=== PATIENT | female | born 1960 | race Caucasian/White ===

== ENCOUNTER 2020-07-02 06:00 | Outpatient (RCR) | payer OTHER, SELFPAY | END 2020-07-08 23:59 | disposition home or self-care (01) | LOC: SOT 06:00 | PROVIDERS: PCP Internal Medicine; Referring Provider Orthopaedic Surgery; Visit Provider Orthopaedic Surgery | DX: M77.12 Lateral epicondylitis, left elbow (principal) | CPT/HCPCS: 97035; 97110; 97140; 97165; 97166 ==

== ENCOUNTER 2020-07-09 06:00 | Outpatient (RCR) | payer OTHER, SELFPAY | END 2020-07-25 16:33 | disposition home or self-care (01) | LOC: SOT 06:00 | PROVIDERS: PCP Internal Medicine; Referring Provider Orthopaedic Surgery; Visit Provider Orthopaedic Surgery | DX: M77.12 Lateral epicondylitis, left elbow (principal) | CPT/HCPCS: 97035; 97110; 97140 ==

== ENCOUNTER → 2022-05-15 12:23 | Outpatient (BNVA) | payer OTHER, SELFPAY | PROVIDERS: PCP Internal Medicine; Visit Provider Podiatrist Foot & Ankle Surgery | DX: M79.671 Pain in right foot (principal) | CPT/HCPCS: 73630 ==

== ENCOUNTER 2022-08-12 18:48 | Observation (INO) | payer OTHER, SELFPAY ==
[2022-08-12] VITALS (9 sets, daily range): BP systolic 107–151; BP diastolic 55–90; PULSE 76–93; RESP 16–24; TEMP 36.9; O2SAT 91–99; BMI 29.2
--- NOTE | 2022-08-12 18:56 | CTR_ITS ---
PROCEDURE INFORMATION: Exam: CTA Head With Contrast, Arteriography Exam date and time: 08/12/2022 7:22 PM Age: 61 years old Clinical indication: Weakness TECHNIQUE: Imaging protocol: Computed tomographic angiography of the head with contrast. Exam focused on the arteries. 3D rendering (Not supervised by radiologist): MIP and/or 3D reconstructed images were created by the technologist. Radiation optimization: All CT scans at this facility use at least one of these dose optimization techniques: automated exposure control; mA and/or kV adjustment per patient size (includes targeted exams where dose is matched to clinical indication); or iterative reconstruction. Contrast material: OMNIPAQUE 350; Contrast volume: 80 ml; Contrast route: INTRAVENOUS (IV); COMPARISON: CT head wo con* [id number] 08/12/2022 7:04 PM RADIATION DOSE METRICS: Total DLP (mGy-cm): 376.02 FINDINGS: ANTERIOR CIRCULATION: Right internal carotid artery: Intracranial segment is patent with no significant stenosis. No aneurysm. Right middle cerebral artery: No occlusion or significant stenosis. No aneurysm. Right anterior cerebral artery: Mild irregularity in the A1 segment of the right anterior cerebral artery with multifocal mild stenoses. The remainder of the artery is patent without stenosis. Left internal carotid artery: Intracranial segment is patent with no significant stenosis. No aneurysm. Left middle cerebral artery: No occlusion or significant stenosis. No aneurysm. Left anterior cerebral artery: No occlusion or significant stenosis. No aneurysm. POSTERIOR CIRCULATION: Right vertebral artery: No occlusion or significant stenosis. No aneurysm. Left vertebral artery: No occlusion or significant stenosis. No aneurysm. Basilar artery: No occlusion or significant stenosis. No aneurysm. 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 No stenosis. Left posterior cerebral artery: No occlusion or significant stenosis. No aneurysm. Brain: No definite mass, mass effect, or midline shift. Cerebral ventricles: No ventriculomegaly. Bones/joints: Unremarkable. No acute fracture. Soft tissues: Unremarkable. PROCEDURE INFORMATION: Exam: CTA Neck With Contrast Exam date and time: 08/12/2022 7:22 PM Age: 61 years old Clinical indication: Weakness TECHNIQUE: Imaging protocol: Computed tomographic angiography of the neck with contrast. 3D rendering (Not supervised by radiologist): MIP and/or 3D reconstructed images were created by the technologist. Radiation optimization: All CT scans at this facility use at least one of these dose optimization techniques: automated exposure control; mA and/or kV adjustment per patient size (includes targeted exams where dose is matched to clinical indication); or iterative reconstruction. Contrast material: OMNIPAQUE 350; Contrast volume: 80 ml; Contrast route: INTRAVENOUS (IV); COMPARISON: CT head wo con* [id number] 08/12/2022 7:04 PM RADIATION DOSE METRICS: Total DLP (mGy-cm): 376.02 FINDINGS: Right common carotid artery: No stenosis. No dissection or occlusion. Right internal carotid artery: No stenosis of the extracranial segment. No dissection or occlusion. Right external carotid artery: No occlusion or stenosis of the origin. Left common carotid artery: No stenosis. No dissection or occlusion. Left internal carotid artery: No stenosis of the extracranial segment. No dissection or occlusion. Left external carotid artery: No occlusion or stenosis of the origin. Right vertebral artery: No stenosis. No dissection or occlusion. 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 No stenosis. Soft tissues: Normal. No significant soft tissue swelling. Bones/joints: No acute fracture. CT/CT angio headneck* [id number] IMPRESSION: 1. No large artery occlusion. 2. Irregularity in the A1 segment of the right anterior cerebral artery with multifocal mild stenoses. This could represent atherosclerotic disease or vasculitis. IMPRESSION: 1. No large artery occlusion or stenosis. REFERENCES: NASCET CRITERIA. The degree of stenosis in the cervical segment of the internal carotid artery is based on NASCET criteria. Normal is no stenosis. Mild is less than 50% stenosis. Moderate is 50-69% stenosis. Severe is 70% to 99% stenosis. Total occlusion is no detectable patent lumen.
--- NOTE | 2022-08-12 18:56 | XRR_ITS ---
PROCEDURE INFORMATION: Exam: XR Chest Exam date and time: 08/12/2022 8:00 PM Age: 61 years old Clinical indication: Other: Weakness ? CVA TECHNIQUE: Imaging protocol: Radiologic exam of the chest. Views: 1 view. COMPARISON: CR XR chest 2V* [id number] 12/16/2020 9:31 AM FINDINGS: Lungs: Unremarkable. No consolidation. Pleural spaces: Unremarkable. No pleural effusion. No pneumothorax. Heart/Mediastinum: Unremarkable. No cardiomegaly. Bones/joints: Unremarkable. XR/XR chest 1V portable [id number] IMPRESSION: No acute findings.
--- NOTE | 2022-08-12 18:56 | CTR_ITS ---
PROCEDURE INFORMATION: Exam: CT Head Without Contrast Exam date and time: 08/12/2022 7:04 PM Age: 61 years old Clinical indication: Stroke-like symptoms; Generalized weakness TECHNIQUE: Imaging protocol: Computed tomography of the head without contrast. Radiation optimization: All CT scans at this facility use at least one of these dose optimization techniques: automated exposure control; mA and/or kV adjustment per patient size (includes targeted exams where dose is matched to clinical indication); or iterative reconstruction. Other technique: STROKE PROTOCOL was implemented. COMPARISON: No relevant prior studies available. RADIATION DOSE METRICS: Total DLP (mGy-cm): 1064.08 FINDINGS: Brain: The sulci are normal. Mild hypodensities in supratentorial periventricular and subcortical white matter, consistent with microangiopathy. No intracranial hemorrhage. Cerebral ventricles: No ventriculomegaly. Paranasal sinuses: Visualized sinuses are unremarkable. No fluid levels. Mastoid air cells: Visualized mastoid air cells are well aerated. Bones/joints: Unremarkable. No acute fracture. Soft tissues: Unremarkable. Vasculature: No hyperdense artery. CT/CT head wo con* [id number] IMPRESSION: No acute intracranial finding. ASSESSMENT: ASPECTS ([place] Stroke Program Early CT Score) is 10.
[2022-08-12 19:05] LABS: Basophils # 0.1 10^3/uL (0.0-0.1); Basophils % 0.6 %; Eosinophils % 0.3 %; Hematocrit 39.6 % (37.0-47.0); Hemoglobin 13.3 g/dL (11.5-15.3); Lymphocytes # 4.5 10^3/uL (0.8-4.8); Lymphocytes % 36.8 %; Mean Corpuscular HGB Conc 33.6 g/dL (30.0-36.0); Mean Corpuscular Hemoglobin 28.3 pg (28.0-34.0); Mean Corpuscular Volume 84.3 fl (81-99); Mean Platelet Volume 10.3 fL (7.4-10.4); Monocytes # 0.8 10^3/uL (0.2-0.9); Monocytes % 6.9 %; Neutrophils # 6.66 10^3/uL (1.8-7.7); Neutrophils % 55.1 %; Nucleated Red Blood Cells % 0 %; Platelet Count 422 10^3/cmm (130-400); Red Cell Distribution Width 13.6 % (12.1-15.1); White Blood Count 12.1 10^3/uL (4.0-10.0)
--- NOTE | 2022-08-12 19:06 | PC.NURSE ---
patient taken immediately to CT scan
[2022-08-12 19:17] LABS: INR 0.91 (0.8-1.2)
[2022-08-12] MEDS: iohexol 350 mg/mL 100 mL Btl IV (19:24)
[2022-08-12 19:34] LABS: Troponin(5th) Baseline 6 ng/L (0-10)
--- NOTE | 2022-08-12 19:40 | PC.NURSE ---
dr. pulido did bedside assessment. tpa not indicated at this time.
[2022-08-12 19:41] LABS: Alanine Aminotransferase 12 U/L (0-33); Albumin Level 4.3 g/dL (3.5-5.2); Alkaline Phosphatase 92 U/L (35-105); Anion Gap 16.4 (5-19); Aspartate Amino Transferase 18 U/L (0-32); Blood Urea Nitrogen 13 mg/dL (8-23); Calcium 9.7 mg/dL (8.5-10.5); Carbon Dioxide 24 mmol/L (22-29); Chloride 96 mmol/L (98-107); Creatinine Clr Calc Pharmacy 95.4046; Globulin 3.3 g/dL (1.3-4.6); Glomerular Filtration Rate 101.6 mL/min (90-130); Glucose 107 mg/dL (65-115); Magnesium 2.3 mg/dL (1.7-2.3); Osmolality Calculated 277 mOsm/kg (285-295); Potassium 3.4 mmol/L (3.5-5.1); Sodium 133 mmol/L (136-145); Thyroid Stimulating Hormone 1.49 uIU/mL (0.27-4.20); Total Bilirubin 0.2 mg/dL (0.15-1.2); Total Protein 7.6 g/dL (6.6-8.7)
[2022-08-12 19:54] LABS: Erythrocyte Sedimentation Rate 12 mm/hr (0-15)
--- NOTE | 2022-08-12 20:04 | ED_ITS ---
HPI - Neuro Symptoms/Deficit General: Chief Complaint: Neuro Symptoms/Deficit Stated Complaint: Weakness, near syncope Time Seen by Provider: 08/12/22 18:56 Source: patient and EMS Mode of arrival: EMS Limitations: no limitations History of Present Illness: 61-year-old female states she was sent down just prior to arrival stated that she started to feel lightheaded like she got a pass out patient arrived she states she is too weak to move any of her extremities is having hard time talking due to weakness denies any headache she does feel anxious denies any chest pain. Associated symptoms: Deny chest pain, nausea or vomiting Review of Systems Const: Denies: fever(s), chills, body aches or change in appetite Eyes: Denies: blurry vision or eye discomfort ENMT: Denies: throat pain or dental pain Card: Denies: chest pain Resp: Denies: dyspnea GI: Denies: abdominal pain, nausea, vomiting or diarrhea : Denies: dysuria Musc: Denies: neck pain or back pain Skin/Breast: Denies: rash Neuro: Reports: weakness in extremities and sensory changes Psych: Denies: depression Alex/Lymph: Denies: easy bruising All/Imm: Denies: urticaria PFSH ED PFSH: Medical History PMS (premenstrual syndrome) Seasonal allergies Surgical History H/O elbow surgery H/O: hysterectomy Family History Other Cancer Social History Smoking and tobacco status: never smoked Alcohol intake: current Alcohol intake frequency: holidays/special occasions only Physical Exam Const: COMMON NORMALS: patient oriented x3 HENMT: COMMON NORMALS: normocephalic and atraumatic HEAD & SCALP: normocephalic and atraumatic Eye: COMMON NORMALS: Equal, round and reactive pupils present and EOMs intact bilaterally PUPIL: Yes Equal, round and reactive pupils present Neck/C-Spine: COMMON NORMALS: full ROM and supple Chest: COMMONS NORMALS: normal inspection of the chest and normal palpation of entire chest wall Resp: COMMON NORMALS: normal respiratory effort, No retractions, No use of accessory muscles and clear to auscultation bilaterally AUSCULTATION: clear to auscultation bilaterally Cardio: COMMON NORMALS: regular rate, regular rhythm and No murmurs present (Cardio) RATE: regular rate RHYTHM: regular rhythm GI: COMMON NORMALS: Normal to inspection, nondistended, normoactive bowel sounds present, Soft to palpation, non-tender and no masses PALPATION: Yes Soft to palpation Extremity: COMMON NORMALS: normal to inspection Neuro: COMMON NORMALS: patient oriented x3 OTHER: Global weakness she has weakness in her arms and her legs difficulty lifting them off the bed Psych: COMMON NORMALS: mental status grossly normal, Normal thought process present and cooperative THOUGHT PROCESS: Normal thought process present Skin: COMMON NORMALS: no rashes or lesions noted and no wounds GENERAL SKIN EXAM: no rashes or lesions noted Course Reevaluation(s): Reevaluation #1: Patient's symptoms have resolved she is able ambulate now CT head CT angio showed no acute abnormalities patient is seen by Dr. Tai we will hold off TPA Time: 19:33 Vital Signs: Vital signs: Vital Signs Pulse Rate 91 08/12/22 19:00 Respiratory Rate 17 08/12/22 19:00 Blood Pressure 151/90 08/12/22 19:00 Pulse Oximetry 99 08/12/22 19:00 Oxygen Delivery Me thod 08/12/22 19:00 MDM - Neuro Symptoms/Deficit Medical Decision Making Patient presents with generalized weakness and is improved patient been seen in the ER by Dr. Tai will admit for likely MRI since patient symptoms improved she is not a tPA candidate. Spoke to hospitalist Dr. Leung who is admitting. Lab Data : 08/12/22 19:00 08/12/22 19:01 Radiology Impressions Chest X-Ray 08/12/22 18:56 IMPRESSION: No acute findings. Head CT 08/12/22 18:56 IMPRESSION: No acute intracranial finding. ASSESSMENT: ASPECTS (Bernadette Stroke Program Early CT Score) is 10. Head/Neck CTA 08/12/22 18:56 IMPRESSION: 1. No large artery occlusion. 2. Irregularity in the A1 segment of the right anterior cerebral artery with multifocal mild stenoses. This could represent atherosclerotic disease or vasculitis. IMPRESSION: 1. No large artery occlusion or stenosis. REFERENCES: NASCET CRITERIA. The degree of stenosis in the cervical segment of the internal carotid artery is based on NASCET criteria. Normal is no stenosis. Mild is less than 50% stenosis. Moderate is 50-69% stenosis. Severe is 70% to 99% stenosis. Total occlusion is no detectable patent lumen. Laboratory Results WBC 12.1 10^3/uL (4.0-10.0) H 08/12/22 19:00 RBC 4.70 10^6/uL (4.1-5.3) 08/12/22 19:00 Hgb 13.3 g/dL (11.5-15.3) 08/12/22 19:00 Hct 39.6 % (37.0-47.0) 08/12/22 19:00 MCV 84.3 fl (81-99) 08/12/22 19:00 MCH 28.3 pg (28.0-34.0) 08/12/22 19:00 MCHC 33.6 g/dL (30.0-36.0) 08/12/22 19:00 RDW 13.6 % (12.1-15.1) 08/12/22 19:00 Plt Count 422 10^3/cmm (130-400) H 08/12/22 19:00 MPV 10.3 fL (7.4-10.4) 08/12/22 19:00 Neut % (Auto) 55.1 % 08/12/22 19:00 Lymph % (Auto) 36.8 % 08/12/22 19:00 [place] % (Auto) 6.9 % 08/12/22 19:00 Eos % (Auto) 0.3 % 08/12/22 19:00 Baso % (Auto) 0.6 % 08/12/22 19:00 Neut # (Auto) 6.66 10^3/uL (1.8-7.7) 08/12/22 19:00 Lymph # (Auto) 4.5 10^3/uL (0.8-4.8) 08/12/22 19:00 [place] # (Auto) 0.8 10^3/uL (0.2-0.9) 08/12/22 19:00 Eos # (Auto) 0.0 10^3/uL (0.0-0.8) 08/12/22 19:00 Baso # (Auto) 0.1 10^3/uL (0.0-0.1) 08/12/22 19:00 Nucleated RBC % (auto) 0 % 08/12/22 19: Nucleated RBCs # 0.0 /100WBC 08/12/22 19: ESR 12 mm/hr (0-15) 08/12/22 19: PT 12.60 SECONDS (12.1-14.9) 08/12/22 19: INR 0.91 (0.8-1.2) 08/12/22 19: Sodium 133 mmol/L (136-145) L 08/12/22 19: Potassium 3.4 mmol/L (3.5-5.1) L 08/12/22 19: Chloride 96 mmol/L (98-107) L 08/12/22 19: Carbon Dioxide 24 mmol/L (22-29) 08/12/22 19: Anion Gap 16.4 (5-19) 08/12/22 19: BUN 13 mg/dL (8-23) 08/12/22 19: Creatinine 0.6 mg/dL (0.5-0.9) 08/12/22 19: GFR Calculation 101.6 mL/min (90-130) 08/12/22 19: Glucose 107 mg/dL (65-115) 08/12/22 19: Calculated Osmolality 277 mOsm/kg (285-295) L 08/12/22 19: Calcium 9.7 mg/dL (8.5-10.5) 08/12/22 19: Magnesium 2.3 mg/dL (1.7-2.3) 08/12/22 19: Total Bilirubin 0.2 mg/dL (0.15-1.2) 08/12/22 19: AST 18 U/L (0-32) 08/12/22 19: ALT 12 U/L (0-33) 08/12/22 19: Alkaline Phosphatase 92 U/L (35-105) 08/12/22 19: Troponin T Baseline 6 ng/L (0-10) 08/12/22 19: Troponin T 120 Minute 6.00 ng/L (0-10) 08/12/22 20:35 Total Protein 7.6 g/dL (6.6-8.7) 08/12/22 19:01 Albumin 4.3 g/dL (3.5-5.2) 08/12/22 19: Globulin 3.3 g/dL (1.3-4.6) 08/12/22 19: TSH 1.49 uIU/mL (0.27-4.20) 08/12/22 19:01 Urine Color Colorless (Yellow) 08/12/22 20:32 Urine Appearance Clear (CLEAR) 08/12/22 20: Urine pH 9 (5-7) H 08/12/22 20:32 Ur Specific [place] 1.015 (1.005-1.030) 08/12/22 20:32 Urine Protein Neg (Negative) 08/12/22 20:32 Urine Glucose (UA) Norm (Normal) 08/12/22 20:32 Urine Ketones 1+ (Negative) H 08/12/22 20:32 Urine Blood Neg (Negative) 08/12/22 20:32 Urine Nitrate Negative (Negative) 08/12/22 20:32 Urine Bilirubin Neg (Negative) 08/12/22 20:32 Prot Sulfosalicylic Acd Negative (Negative) 08/12/22 20:32 Urine Urobilinogen Norm mg/dL (Negative) 08/12/22 20:32 Ur Leukocyte Esterase Negative (Negative) 08/12/22 20:32 Discharge Plan Discharge Patient Disposition: Admitted As Inpatient Clinical Impression: Weakness Condition: Stable Prescriptions: No Action Zyrtec 10 mg capsule 10 mg PO DAILY fluoxetine 10 mg capsule 10 mg PO DAILY tretinoin 0.1 % cream 1 applic topical DAILY Qty: 45 3RF Rx Instructions: Apply pea-sized amount to clean, dry face nightly Referrals: Uche Emmanuel DO [Primary Care Provider] - Coding Level of Care Code ED Blocker And Polisher for Chg Fwd Exam Comprehensive
[2022-08-12] MEDS: LORazepam 1 mg Tablet PO (20:37)
[2022-08-12 20:42] LABS: Add Urine Microscopic? NO; Charge for UA Resulting for Rev
[2022-08-12 20:50] LABS: Bilirubin Urine Neg (Negative); Blood Urine Neg (Negative); Glucose Urine UA Norm (Normal); Ketones Urine 1+ (Negative); Leukocyte Esterase Urine Negative (Negative); Nitrate Urine Negative (Negative); Protein Urine Neg (Negative); Specific Gravity, Urine 1.015 (1.005-1.030); Sulfosalicylic Acid Urine Negative (Negative); Urine Appearance Clear (CLEAR); Urine Color Colorless (Yellow); Urobilinogen Urine Norm (Negative); pH Urine 9 (5-7)
--- NOTE | 2022-08-12 21:02 | ECG_ITS ---
[facility] Test Date: 2022-08-12 Pat Name: Soraida Tomas Department: Room: Gender: Female Dam[employer] Maker: : 1960 Requested By: Kihsan Andrews Order Number: [id number] Kiki MD: Jessie Cobb M.D. Measurements Intervals [place] Rate: 83 P: 55 GA: 152 QRS: -19 QRSD: 110 T: 59 QT: 391 QTc: 460 Interpretive Statements SINUS RHYTHM POSSIBLE LEFT ATRIAL ENLARGEMENT [-0.1mV P-WAVE IN V1/V2] INCOMPLETE RIGHT BUNDLE BRANCH BLOCK POSSIBLE INFERIOR MYOCARDIAL INFARCTION , PROBABLY OLD No previous ECG available for comparison Electronically Signed On 08-13-2022 12:52:48 CDT by Jessie Cobb M.D. [email or web address]
[2022-08-12] MEDS: aspirin 81 mg Chew Tablet 324 MG PO (21:10)
[2022-08-12] MEDS: sodium chloride 0.9% 1,000 ML 999 ML IV (21:10)
[2022-08-12 21:44] LABS: Troponin 5 2HR Delta 0 ABS# (0-10)
[2022-08-12 22:06] LABS: SARS Covid-2 Antigen negative (Negative)
--- NOTE | 2022-08-12 22:15 | PM.HP ---
Providers/Chief Complaint Primary Care Provider: Uche Emmanuel DO Chief Complaint: Weakness, near syncope History of Present Illness Soraida Tomas is a 61 year old female without significant known comorbidities who presented to the emergency room with having had an episode of passing out at around 6:30 PM. Patient reports she was in her usual state of health, she had just had dinner and suddenly started to feel dizzy, lightheaded and then lost consciousness. Her at bedside reports that she was unresponsive for about 20 minutes. He denies any seizure-like activity. No tonic-clonic movements however did notice rapid fluttering of her eyelashes. Patient denies any chest pain, dyspnea, palpitations, diaphoresis prior to onset of symptoms. She does not have any history of arrhythmias or other cardiac issues. No past history of CVA. No history of hypertension diabetes CAD. When she woke up, states that it was difficult for her to find words. She was moving all extremities, however reported generalized weakness. By the time she presented to the emergency room her symptoms had resolved. For this reason she was not given any tPA. CT of the head did not show any acute intracranial abnormalities. CTA of her head and neck did not show any large artery occlusion. Irregularity was noted in the A1 segment of the right anterior cerebral artery with multifocal mild stenosis suggestive of atherosclerotic disease versus vasculitis. She was evaluated by Dr. Tai in the emergency room. MRI/MRA has been recommended in follow-up. Patient does not have a known history of vasculitis, however states that her sister recently had what appears to be gangrene of her fingers in the setting of COVID-19 and during work-up was found to have an MTHFR mutation. Patient has no history of known clotting disorders. She is on hormone replacement therapy for several years to manage menopausal symptoms. Review of Systems General: Reports: 10 or more systems reviewed and unremarkable except in HPI and below Const: Denies: fever(s), chills or body aches Eyes: Denies: change in vision, blurry vision or photophobia ENMT: Reports: hoarseness; Denies: throat pain, enlarged tonsils, odynophagia or nasal congestion Card: Denies: chest pain, palpitations, irregular heart rhythm, edema, swelling of feet/ankles, lightheadedness, pre-syncope, dyspnea on exertion or orthopnea Resp: Denies: dyspnea, productive cough, non-productive cough, wheezing, stridor, pain on inspiration, change in phlegm color, hemoptysis or chest congestion GI: Denies: abdominal pain, nausea, vomiting, hematemesis, coffee ground emesis, dysphagia, heartburn, diarrhea, constipation, GI cramping, change in stool character, hematochezia or melena : Denies: flank pain, difficulty voiding, dysuria, urinary frequency, urinary urgency, urinary hesitancy or hematuria Musc: Denies: neck pain, back pain, extremity pain, joint swelling, joint warmth or deformity Neuro: Denies: headache(s), numbness in extremities, weakness in extremities, sensory changes, difficulty walking, frequent falls, dizziness, vertigo, behavioral changes, Slurred speech present or seizure-like activity Psych: Denies: anxiety, depression, suicidal ideation or homicidal ideation Endo: Denies: polyuria, polydipsia, tired all the time, cold intolerance or hot flashes Alex/Lymph: Denies: easy bruising or easy bleeding Medications/Allergies Home Medications Medication Instructions Recorded Confirmed Last Taken Type cetirizine 10 mg capsule (Zyrtec) 10 mg PO DAILY 02/17/21 08/12/22 Unknown History fluoxetine 10 mg capsule 10 mg PO DAILY 02/17/21 08/12/22 Unknown History estradiol 0.05 mg/24 hr semiweekly 0.05 mg transdermal Q7D 08/12/22 08/12/22 Unknown History transdermal patch progesterone micronized 200 mg 200 mg PO DAILY 08/12/22 08/12/22 Unknown History capsule Allergies Allergy/AdvReac Type Severity Reaction Status Date / Time Sulfa (Sulfonamide Allergy Rash Verified 08/12/22 19:06 Antibiotics) PFSH Acute PFSH: Medical History PMS (premenstrual syndrome) Seasonal allergies Surgical History H/O elbow surgery H/O: hysterectomy Family History Other Cancer Social History Smoking and tobacco status: never smoked Alcohol intake: current Alcohol intake frequency: holidays/special occasions only Vitals/I&O/Wt Last Vital Signs Pulse 91 08/12/22 19:00 Resp 17 08/12/22 19:00 BP 151/90 08/12/22 19:00 Pulse Ox 99 08/12/22 19:00 O2 Del Method 08/12/22 19:00 Weight last 48 hrs Weight 74.843 kg Physical Exam Narrative: General: No acute distress, AO x3 HEENT: PERRLA, pupils bilaterally equal and reactive, pallors not present Chest: Normal vesicular breath sounds, no added sounds, equal good air entry bilaterally CVS: S1-S2 regular, no murmurs, no tachycardia, no gallops, no rubs Abdomen: Soft, nontender, no organomegaly, bowel sounds present Neuro: No focal deficits, no facial deformity, AO x3, power 5/5 in all limbs Data : 08/13/22 02:47 08/13/22 02:47 Other Labs: Radiology Impressions Chest X-Ray 08/12/22 18:56 IMPRESSION: No acute findings. Head CT 08/12/22 18:56 IMPRESSION: No acute intracranial finding. ASSESSMENT: ASPECTS ([place] Stroke Program Early CT Score) is 10. Head/Neck CTA 08/12/22 18:56 IMPRESSION: 1. No large artery occlusion. 2. Irregularity in the A1 segment of the right anterior cerebral artery with multifocal mild stenoses. This could represent atherosclerotic disease or vasculitis. IMPRESSION: 1. No large artery occlusion or stenosis. REFERENCES: NASCET CRITERIA. The degree of stenosis in the cervical segment of the internal carotid artery is based on NASCET criteria. Normal is no stenosis. Mild is less than 50% stenosis. Moderate is 50-69% stenosis. Severe is 70% to 99% stenosis. Total occlusion is no detectable patent lumen. Laboratory Results WBC 10.7 10^3/uL (4.0-10.0) H 08/13/22 02:47 RBC 4.19 10^6/uL (4.1-5.3) 08/13/22 02:47 Hgb 11.7 g/dL (11.5-15.3) 08/13/22 02:47 Hct 36.6 % (37.0-47.0) L 08/13/22 02:47 MCV 87.4 fl (81-99) 08/13/22 02:47 MCH 27.9 pg (28.0-34.0) L 08/13/22 02:47 MCHC 32.0 g/dL (30.0-36.0) 08/13/22 02:47 RDW 13.9 % (12.1-15.1) 08/13/22 02:47 Plt Count 322 10^3/cmm (130-400) 08/13/22 02:47 MPV 10.6 fL (7.4-10.4) H 08/13/22 02:47 Neut % (Auto) 51.4 % 08/13/22 02:47 Lymph % (Auto) 38.9 % 08/13/22 02:47 Morton % (Auto) 8.1 % 08/13/22 02:47 Eos % (Auto) 0.7 % 08/13/22 02:47 Baso % (Auto) 0.6 % 08/13/22 02:47 Neut # (Auto) 5.51 10^3/uL (1.8-7.7) 08/13/22 02:47 Lymph # (Auto) 4.2 10^3/uL (0.8-4.8) 08/13/22 02:47 Morton # (Auto) 0.9 10^3/uL (0.2-0.9) 08/13/22 02:47 Eos # (Auto) 0.1 10^3/uL (0.0-0.8) 08/13/22 02:47 Baso # (Auto) 0.1 10^3/uL (0.0-0.1) 08/13/22 02:47 Nucleated RBC % (auto) 0 % 08/13/22 02:47 Nucleated RBCs # 0.0 /100WBC 08/13/22 02:47 ESR 12 mm/hr (0-15) 08/12/22 19:00 PT 12.60 SECONDS (12.1-14.9) 08/12/22 19:01 INR 0.91 (0.8-1.2) 08/12/22 19:01 Sodium 141 mmol/L (136-145) 08/13/22 02:47 Potassium 3.7 mmol/L (3.5-5.1) 08/13/22 02:47 Chloride 107 mmol/L (98-107) 08/13/22 02:47 Carbon Dioxide 22 mmol/L (22-29) 08/13/22 02:47 Anion Gap 15.7 (5-19) 08/13/22 02:47 BUN 12 mg/dL (8-23) 08/13/22 02:47 Creatinine 0.6 mg/dL (0.5-0.9) 08/13/22 02:47 GFR Calculation 101.6 mL/min (90-130) 08/13/22 02:47 Glucose 99 mg/dL (65-115) 08/13/22 02:47 Calculated Osmolality 292 mOsm/kg (285-295) 08/13/22 02:47 Calcium 9.1 mg/dL (8.5-10.5) 08/13/22 02:47 Magnesium 2.3 mg/dL (1.7-2.3) 08/12/22 19:01 Total Bilirubin 0.2 mg/dL (0.15-1.2) 08/13/22 02:47 AST 19 U/L (0-32) 08/13/22 02:47 ALT 9 U/L (0-33) 08/13/22 02:47 Alkaline Phosphatase 79 U/L (35-105) 08/13/22 02:47 Troponin T Baseline 6 ng/L (0-10) 08/12/22 19:01 Troponin T 120 Minute 6.00 ng/L (0-10) 08/12/22 20:35 Delta Troponin T 0 ABS# (0-10) 08/12/22 20:35 Troponin T Hi Sens 6Hr 6.00 ng/L (0-10) 08/13/22 02:47 Troponin T Hi Sens 6Hr Delta 0 ng/L (0-12) 08/13/22 02:47 Total Protein 6.3 g/dL (6.6-8.7) L 08/13/22 02:47 Albumin 3.8 g/dL (3.5-5.2) 08/13/22 02:47 Globulin 2.5 g/dL (1.3-4.6) 08/13/22 02:47 Triglycerides 580 mg/dL (0-150) H 10/05/22 20: Cholesterol 268 mg/dL (0-200) H 08/12/22 20: LDL Cholesterol Direct 160 mg/dL (0-100) H 08/12/22: LDL Cholesterol, Calc Not Reportable 08/12/22: HDL Cholesterol 49 mg/dL (60-100) L 08/12/22: LDL/HDL Ratio Not Reportable 08/12/22: Cholesterol/HDL Ratio 5.47 mg/dL (0.0-4.40) H 08/12/22 20:35 TSH 1.49 uIU/mL (0.27-4.20) 08/12/22 19:01 Urine Color Colorless (Yellow) 08/12/22: Urine Appearance Clear (CLEAR) 08/12/22: Urine pH 9 (5-7) H 08/12/22 20:32 Ur Specific [place] 1.015 (1.005-1.030) 08/12/22: Urine Protein Neg (Negative) 08/12/22: Urine Glucose (UA) Norm (Normal) 08/12/22: Urine Ketones 1+ (Negative) H 08/12/22: Urine Blood Neg (Negative) 08/12/22: Urine Nitrate Negative (Negative) 08/12/22: Urine Bilirubin Neg (Negative) 08/12/22 20:32 Prot Sulfosalicylic Acd Negative (Negative) 08/12/22:32 Urine Urobilinogen Norm mg/dL (Negative) 08/12/22: Ur Leukocyte Esterase Negative (Negative) 08/12/22 20: SARS-CoV-2 Ag (Rapid) negative (Negative) 08/12/22 21:19 A&P Assessment and plan (1) TIA (transient ischemic attack): (2) Syncope and collapse: Plan Patient presenting to the hospital today with transient loss of consciousness around 6:30 PM last evening. 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 Continuous telemetry monitoring to evaluate for any underlying arrhythmias. EKG currently shows sinus rhythm at [address] findings as noted above. Ordered for MRI and MRA. Vasculitis panel has been sent Check lipid panel Start aspirin 81 mg p.o. daily, atorvastatin 40 mg p.o. daily Check echocardiogram Her symptoms appear to be resolved at this point in time. Further recommendations based on result of her MRI. Attestations Medical Necessity Statement*: Anticipate less than 2 midnight stay for for above defined care Coding Level of Care Code Acute Emergency Services Professional for Caridadg Fwd Diagnoses TIA (transient ischemic attack) G45.9 Syncope and collapse R55
--- NOTE | 2022-08-12 22:16 | USCV_ITS ---
Genoveva Soraida Age: 61 Gender: F : 1960 Exam Date: 08/12/2022 22:38 Ordering Phys: Freda Leung MD Technologist: BROOKE Exam Location: [facility] [place] Indication: Confusion, dysphasia TIA BP: 151 / 90 HR: 81 Rhythm: Sinus Technical Quality: Good MEASUREMENTS (Male / Female) Normal Values 2D ECHO LV Diastolic Diameter PLAX 3.6 cm 4.2 - 5.9 / 3.9 - 5.3 cm LV Systolic Diameter PLAX 2.4 cm IVS Diastolic Thickness 0.8 cm 0.6 - 1.0 / 0.6 - 0.9 cm IVS Systolic Thickness 1.3 cm LVPW Diastolic Thickness 1.0 cm 0.6 - 1.0 / 0.6 - 0.9 cm LVPW Systolic Thickness 1.4 cm LVOT Diameter 1.9 cm LV Ejection Fraction 2D Teich 62.8 % LV Ejection Fraction MOD 2C 77.5 % LV Ejection Fraction 2C AL 78.9 % LA Diameter 3.1 cm LA Width 3.4 cm LA Height 3.8 cm RA Width 2.4 cm RA Height 3.6 cm Aorta at Sinotubular Diameter 2.3 cm IVC Diameter 0.8 cm M-MODE Aortic Annulus Diameter 3.2 cm LA Ao Ratio MM 1.1 MV E Point Septal Separation 0.1 cm DOPPLER AV Peak Velocity 142.0 cm/s LVOT Peak Velocity 128.0 cm/s AV Area Cont Eq vti 2.6 cm squared AV Area Cont Eq pk 2.6 cm squared MV Area PHT 3.1 cm squared Mitral E to A Ratio 0.9 MV E' Velocity 54.0 cm/s Mitral E to MV E' Ratio 6.8 Mitral E to LV E' Lateral Ratio 6.6 Mitral E to LV E' Septal Ratio 7.2 TV Peak E Velocity 76.0 cm/s PV Peak Velocity 113.0 cm/s RV Acceleration Time 0.1 s RV Ejection Time 0.4 s RV AcT/ET 0.3 FINDINGS Left Ventricle Normal left ventricular size, systolic function and wall thickness, with no regional wall motion abnormalities. Left ventricular ejection fraction is estimated at 65 %. Normal diastolic function. Right Ventricle Normal right ventricular size and systolic function. RVSP could not be calculated due to incomplete tricuspid regurgitation velocity profile. Right Atrium Normal right atrial size. Left Atrium Normal left atrial size. Mitral Valve Structurally normal mitral valve. No mitral valve stenosis. No mitral valve regurgitation. Aortic Valve Structurally normal trileaflet aortic valve. No aortic valve stenosis. No aortic valve regurgitation. Tricuspid Valve Structurally normal tricuspid valve. Trace tricuspid valve regurgitation. Pulmonic Valve Structurally normal pulmonic valve. No pulmonary valve stenosis. Trace pulmonary valve regurgitation. Pericardium No pericardial effusion. Aorta Normal size aortic root and proximal ascending aorta. IVC Normal IVC dimension with >50% respiratory change of the inferior vena cava. CONCLUSIONS 1. Normal left ventricular size, systolic function and wall thickness, with no regional wall motion abnormalities. Left ventricular ejection fraction is estimated at 65 %. Normal diastolic function. 2. Normal right ventricular size and systolic function. 3. No significant valvular abnormality. 4. No prior similar studies to compare. Jessie Cobb MD (Electronically Signed) Final Date: 13 August 2022 12:49 S
--- NOTE | 2022-08-12 22:30 | PC.NURSE ---
1st ekg delayed. spoke with dr payne, 2nd ekg not needed at this time.
[2022-08-12 22:46] LABS: Chol HDL Ratio 5.47 mg/dL (0.0-4.40); Cholesterol 268 mg/dL (0-200); HDL Cholesterol 49 mg/dL (60-100); Triglycerides 580 mg/dL (0-150)
[2022-08-12 23:34] LABS: LDL Cholesterol Direct 160 mg/dL (0-100)
[2022-08-13] VITALS: BP 125/72; PULSE 80; RESP 18; TEMP 36.9; O2SAT 96
[2022-08-13 00:19] VITALS: BMI 26.7
--- NOTE | 2022-08-13 00:56 | ECG_ITS ---
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 Measurements Intervals Gervais Rate: 79 P: 58 GA: 180 QRS: 24 QRSD: 105 T: 57 QT: 398 QTc: 456 Interpretive Statements SINUS RHYTHM INDETERMINATE AXIS Compared to ECG 08/12/2022 21:02:00 Indeterminate axis now present Incomplete right bundle-branch block no longer present Myocardial infarct finding no longer present Electronically Signed On 08-13-2022 12:53:21 CDT by Jessie Cobb M.D. [id number]
[2022-08-13 03:25] LABS: Basophils # 0.1 10^3/uL (0.0-0.1); Basophils % 0.6 %; Eosinophils # 0.1 10^3/uL (0.0-0.8); Eosinophils % 0.7 %; Hematocrit 36.6 % (37.0-47.0); Hemoglobin 11.7 g/dL (11.5-15.3); Lymphocytes # 4.2 10^3/uL (0.8-4.8); Lymphocytes % 38.9 %; Mean Corpuscular Hemoglobin 27.9 pg (28.0-34.0); Mean Corpuscular Volume 87.4 fl (81-99); Mean Platelet Volume 10.6 fL (7.4-10.4); Monocytes # 0.9 10^3/uL (0.2-0.9); Monocytes % 8.1 %; Neutrophils # 5.51 10^3/uL (1.8-7.7); Neutrophils % 51.4 %; Nucleated Red Blood Cells % 0 %; Platelet Count 322 10^3/cmm (130-400); Red Blood Count 4.19 10^6/uL (4.1-5.3); Red Cell Distribution Width 13.9 % (12.1-15.1); White Blood Count 10.7 10^3/uL (4.0-10.0)
[2022-08-13 03:54] LABS: Alanine Aminotransferase 9 U/L (0-33); Albumin Level 3.8 g/dL (3.5-5.2); Alkaline Phosphatase 79 U/L (35-105); Anion Gap 15.7 (5-19); Aspartate Amino Transferase 19 U/L (0-32); Blood Urea Nitrogen 12 mg/dL (8-23); Calcium 9.1 mg/dL (8.5-10.5); Carbon Dioxide 22 mmol/L (22-29); Chloride 107 mmol/L (98-107); Globulin 2.5 g/dL (1.3-4.6); Glomerular Filtration Rate 101.6 mL/min (90-130); Glucose 99 mg/dL (65-115); Osmolality Calculated 292 mOsm/kg (285-295); Potassium 3.7 mmol/L (3.5-5.1); Sodium 141 mmol/L (136-145); Total Bilirubin 0.2 mg/dL (0.15-1.2); Total Protein 6.3 g/dL (6.6-8.7)
[2022-08-13 04:00] VITALS: BP 107/68; PULSE 70; RESP 22; TEMP 36.5; O2SAT 97
[2022-08-13 04:47] LABS: Troponin 5 6HR Delta 0 ng/L (0-12)
[2022-08-13 06:00] VITALS: PULSE 69
--- NOTE | 2022-08-13 06:16 | MR_ITS ---
WS: [id number] MRI BRAIN WITH AND WITHOUT CONTRAST HISTORY: TIA, possible vasculitis COMPARISON: Noncontrast CT head 08/12/2022 TECHNIQUE: Multiplanar imaging performed through the brain with MultiHance 15 ml's IV. No acute infarcts are seen. Reddy-white matter differentiation is well preserved. There are a few scat tered T2 and FLAIR signal hyperintensities in the frontal and temporal lobes. Small focus of increase d signal also adjacent to the LEFT occipital horn of the lateral ventricles and the parietal lobe. No prior infarct or lacunar infarct. No susceptibility artifacts or prior lacunar infarcts. Ventricles and extra-axial spaces are normal. Clivus and pituitary gland are normal. Visualized posterior fossa and brainstem are also normal. Postcontrast images are negative for masses or vascular malformations. Dural venous sinuses are normal. Paranasal sinuses: Well aerated with no significant disease. Mastoid air cells: Normal. Calvarium and scalp: Normal. MR/MR head wo/w con [id number] IMPRESSION: 1. No acute infarct. No diffusion-weighted abnormalities. 2. Very mild T2 and FLAIR signal hyperintensities are probably from small vess el ischemic disease. The distribution involving the frontal lobes can also be s een with migraine headaches. 3. Normal sized ventricles. 4. Visualized nulato of Marti is normal. There are no areas of occlusion or s tenosis.
[2022-08-13 07:53] VITALS: BP 126/75; PULSE 80; RESP 16; TEMP 36.4; O2SAT 96
[2022-08-13 08:23] VITALS: BP 118/78; BP 122/77; BP 128/71; PULSE 77; PULSE 78
[2022-08-13] MEDS: fluoxetine 10 mg Capsule PO (08:45)
[2022-08-13] MEDS: pantoprazole DR 40 mg Tablet PO (08:45)
[2022-08-13] MEDS: aspirin 81 mg EC Tablet PO (08:45)
--- NOTE | 2022-08-13 09:00 | P.PNCC_ITS ---
Stroke Alert Activation ED Arrival Date: 08/12/22 ED Arrival Time: 19:00 ED Physican at Bedside: 19:00 Last Known Normal/at Baseline: < 1 hour ago Other Last Known Well Infomation: A stroke alert was activated at 1900 hrs. and I came directly to CAT scan where the patient had just arrived. She was taken directly from triage, where she arrived by private vehicle, to CAT scan with symptoms of ataxia, visual obscuration and vertigo. She was seen by Dr. Kishan Andrews on the way to CAT scan. On completion of her CT of the head I reviewed the study and then performed a brief NIH stroke exam and found nystagmus on left gaze, diffuse weakness and no other findings. She could talk to me although she appeared weak. CT angiogram was completed while I talked with Dr. Andrews and then escorted the patient back to her room where I interviewed her . He said that they ate supper uneventfully and then she told him that there was something she wanted to show him in the basement (he gather that she wanted a bookshelf moved). She seems not to be feeling well and as she got detention down the steps she clutch the railing and he had to help her down the rest of the stairs and into a chair. She was complaining of diffuse weakness and spinning. Her called 911 in [facility] picked her up. eyeglass cutter told me that the patient seemed to have difficulty with her vision when they picked her up and that she was weak all over. They were still outside CAT scan when I arrived and I talked with them first. I talked with the patient as she was coming back from CAT scan, during her stay in CAT scan and after returning to the room. I help stand her up to take her to the bathroom and she stated I can see you. At that point she acknowledged that she could not see at some point during this experience. She describes spinning vertigo. On examination she had trouble moving either of her legs during initial exam and Dr. Andrews said that when he examined her she was weak in all 4 extremities. We were both concerned about posterior circulation stroke. The patient was able to walk. Although she was weak in both legs she otherwise function well and my conclusion was that she was not a tPA candidate. I stayed until her CT angiogram was complete and reviewed it with Dr. Andrews. The virtual radiologist then rendered his opinion. I left the unit at 8 PM. Stroke Alert Activated by: [facility] Stroke Alert Activation Time: 19:00 Stroke MD @ Bedside Date: 08/12/22 Stroke MD @ Bedside Time: 19:05 NIH Stroke Scale Time: 19:10 NIH stroke score NIHSS: Level Of Consciousness - 1a: 0 Level Of Consciousness Questions - 1b: Both Correct Level Of Consciousness Commands - 1c: Both Correct Best Gaze - 2: Normal Visual Gamino - 3: No Visual Loss Facial Palsy - 4: Normal Motor Arm Right - 5: No Drift Motor Arm Left - 5: No Drift Motor Leg Right - 6: Drift Motor Leg Left - 6: Drift Limb Ataxia - 7: Absent Sensory - 8: Normal Best Language - 9: No Aphasia Dysarthia - 10: Normal Extinction And Inattention - 11: 0 Score: Total Score: 2 Stroke Alert Data/Treatment Time to CT of Head: 19:00 CT Impression: Normal tPA Contraindication: tPA Contraindication: Treatment not indcated tPA Admin Prior to Arrival: No Patient & Family Educated on: Treament Plan and Prognosis Other Information: CT angiogram 1. No large artery occlusion. 2. Irregularity in the A1 segment of the right anterior cerebral artery with multifocal mild stenoses.? This could represent atherosclerotic disease or vasculitis.? ? IMPRESSION: 1. No large artery occlusion or stenosis. Heriberto Coe 08/12/221943? Critical Care Time Critical Care Time: 30 - 74 mins A&P Assessment and plan (1) TIA (transient ischemic attack): How please asked he 1-year-old woman with no significant health history presents with transient generalized weakness, vertigo and visual obscuration. This was of concern for posterior circulation TIA. I see that the patient told Dr. Leung that she thought she passed out and said that she was unresponsive for about 20 minutes. I did not get that history from the patient or her but they both had time to reflect before being interviewed by Dr. Leung and were not in the heat of the moment for stroke evaluation. That would raise the question of seizure. Also, the radiologist noticed some irregularity of the A1 segment of her right anterior cerebral artery, which is unlikely to have any bearing on tonight's experience but I should see this patient after discharge and she should have an EEG after discharge as well as MRI brain after discharge. Thanks for allowing me to participate in her care. Coding Level of Care Code Acute Shake Feeder for Rossana Rios Diagnoses TIA (transient ischemic attack) G45.9
--- NOTE | 2022-08-13 09:24 | MR_ITS ---
WS: [id number] MR VENOGRAPHY HEAD 3-D noncontrast imaging performed through the cerebral veins. All imaging is reviewed. HISTORY: syncope COMPARISON: Prior noncontrast head CT 08/12/2022 and MRI brain 08/13/2022 reviewed. Good demonstration of the superior sagittal sinus and the RIGHT transverse sinus and jugular vein. No thrombus identified. No signal was identified within the LEFT transverse sinus and jugular vein but this is probably due to small caliber. After reviewing the prior studies there is no signal abnormali ties noted to suggest a deep venous thrombosis. Small size of the LEFT transverse sinus and jugular v ein. No venous infarcts were identified on the recent MRI. MR/[place] [id number] IMPRESSION: No deep venous sinus thrombosis. Lack of signal in the LEFT transverse sinus an d sigmoid sinus is secondary to small caliber vein.
[2022-08-13] MEDS: LORazepam 2 mg/mL oral liquid (mL) 0.5 MG PO (11:35)
[2022-08-13 11:49] VITALS: BP 122/76; PULSE 80; RESP 16; TEMP 36.6; O2SAT 97
--- NOTE | 2022-08-13 14:15 | PM.DCS ---
Discharge Providers Date of Admission: 08/13/22 00:16 Date of Discharge: August 13, 2022 Attending Provider at Admission: Freda Leung MD Attending Provider at Discharge: Yonathan Mayer MD Primary Care Provider: Uche Emmanuel DO Diagnoses at Discharge Discharge Diagnosis (1) TIA (transient ischemic attack): Status: Acute Reason for Visit Reason for Visit: Weakness, near syncope Hospital Course Hospital Course This is a 61-year-old female, who presents to [facility] for syncope and collapse episode -Patient tells me that yesterday morning, it was a very busy day for her, she had walked 2 miles which is not unusual for her, she is very active, she clean the house, there is been a lot of stressors recently in her life, her sister spent over 3 months in the hospital for COVID-19, she had tissue necrosis, she had blood clots but she is back home -She tells me that she was sitting down at the dinner table, and as soon as she got up she felt lightheaded, dizzy who was feeling unwell -So has been suggested she go lie down so she had to climb down the stairs to go downstairs in as she was going down, she continued to feel lightheaded and dizzy with slumping over, so her had to actively help her down the stairs -Once she got downstairs, he helped her into her chair and when she was in the chair she went unresponsive for a few minutes, her eyes rolled back she eyes rolled back, after a few seconds, she became more responsive -No reported facial droop, no slurring of words, no focal weakness reported, no seizure-like episode -She is never had a cardiovascular history, no history of chest pain, no history of preceding chest pain or palpitations -She denies any history of lung problems -No history of strokes or TIAs -No history of cardiac arrhythmias, no found history of sudden cardiac -Recently her sister who had COVID-19, tested positive for hypercoagulability gene, MT FHR gene, and her doctors have told all family numbers to be tested for hypercoagulability -She does take estradiol -In the hospital she was alert oriented x3, following all commands as soon as she arrived in the ER, was deemed not a tPA candidate hospital stay was called for admission for clinical monitoring -No significant electrolyte abnormalities, no significant troponin elevation, no significant EKG changes, no acute ST-T wave changes -Echocardiogram ?1. Normal left ventricular size, systolic function and wall ?thickness, with no regional wall motion abnormalities. Left ?ventricular ejection fraction is estimated at 65 %. Normal ?diastolic function. ?2. Normal right ventricular size and systolic function. ?3. No significant valvular abnormality. ?4. No prior similar studies to compare. -CT of the head no acute findings -CTA of the head and neck showed - CT/CT angio headneck* [id number] IMPRESSION: 1. No large artery occlusion. 2. Irregularity in the A1 segment of the right anterior cerebral artery with multifocal mild stenoses.? This could represent atherosclerotic disease or vasculitis.? ? IMPRESSION: 1. No large artery occlusion or stenosis. -Thus given concern for irregularity, MRA and MRV were ordered especially given her family history of hypercoagulability MRI of the brain 1.? No acute infarct. No diffusion-weighted abnormalities. 2.? Very mild T2 and FLAIR signal hyperintensities are probably from small vessel ischemic disease. The distribution involving the frontal lobes can also be seen with migraine headaches. 3.? Normal sized ventricles. 4.? Visualized [place] of [place] is normal. There are no areas of occlusion or stenosis. MRV No deep venous sinus thrombosis. Lack of signal in the LEFT transverse sinus and sigmoid sinus is secondary to small caliber vein. -In addition her ESR was within normal limits, vasculitis order was ordered, hypercoagulability ordered -She remains relatively asymptomatic, able to ambulate by herself, go to the bathroom, she was discharged home -In terms of the etiology, possible cardiac etiology although her cardiac work-up is relatively unremarkable she has not had any significant telemetry events -I have discharged her an event monitor, if she were to have recurrent symptoms go to the emergency room, follow-up with cardiology in a month certainly she is a candidate for stress testing if her event monitor is unrevealing -In addition Dr. Tai was consulted to the emergency room, she recommended close follow-up with had a EEG -Given her family history of hypercoagulability, I have advised her to hold estradiol for now -In addition I have ordered hypercoagulability work-up which should be followed up by her primary care provider or specialist -In addition I have ordered a vasculitis work-up, should be followed up by primary care provider or specialist -She was also found to have hypertriglyceridemia, I have discharged her on fenofibrate, recheck triglyceride levels to her primary care provider in 6 weeks Physical Exam Const: COMMON NORMALS: no acute distress and patient oriented x3 Resp: COMMON NORMALS: normal respiratory effort, No retractions, No use of accessory muscles and clear to auscultation bilaterally AUSCULTATION: clear to auscultation bilaterally Cardio: COMMON NORMALS: regular rate, regular rhythm, S1 normal heart sound present and S2 normal heart sound present RATE: regular rate RHYTHM: regular rhythm HEART SOUNDS: S1 normal heart sound present and S2 normal heart sound present GI: COMMON NORMALS: Normal to inspection, nondistended, normoactive bowel sounds present, non-tender and no masses Extremity: COMMON NORMALS: no pedal edema Neuro: COMMON NORMALS: patient oriented x3, CN's II-XII intact bilaterally, moves all extremities, no focal motor deficits and no sensory deficits noted Psych: COMMON NORMALS: mental status grossly normal Discharge Data Studies Completed and Pending Completed Studies During Hospitalization Category Date Time Status CT angio headneck* [id number] Stat Cat Scan 08/12/22 18:[address] head wo con* [id number] Stat Cat Scan 08/12/22 18:56 Completed XR chest 1V portable [id number] Stat Exams 08/12/22 18:56 Completed MR head wo/w con [id number] Routine MRI 08/13/22 06:16 Completed CV. echo complete* [id number] Stat Ultrasound 08/12/22 22:16 Completed Pending at discharge Category Date Time Status LESLIE SCREEN [LESLIE Profile Rheumatology] Stat Lab 08/12/22 20:35 Received CARDIOLIPIN AB (IGA,IGG,IGM) Stat Lab 08/13/22 09:15 Received Factor 5 Leiden Mutation Stat Lab 08/13/22 09:15 Received Lupus Inhibitor Panel Anticoag Stat Lab 08/13/22 09:15 Received PROTHROMBIN GENE [PROTHROMBIN (FACTOR II) [id number]] Stat Lab 08/13/22 09:15 Received MRV [[place] [id number]] Routine MRI 08/13/22 09:24 Taken Radiology Impressions Chest X-Ray 08/12/22 18:56 IMPRESSION: No acute findings. Head CT 08/12/22 18:56 IMPRESSION: No acute intracranial finding. ASSESSMENT: ASPECTS (Bernadette Stroke Program Early CT Score) is 10. Head/Neck CTA 08/12/22 18:56 IMPRESSION: 1. No large artery occlusion. 2. Irregularity in the A1 segment of the right anterior cerebral artery with multifocal mild stenoses. This could represent atherosclerotic disease or vasculitis. IMPRESSION: 1. No large artery occlusion or stenosis. REFERENCES: NASCET CRITERIA. The degree of stenosis in the cervical segment of the internal carotid artery is based on NASCET criteria. Normal is no stenosis. Mild is less than 50% stenosis. Moderate is 50-69% stenosis. Severe is 70% to 99% stenosis. Total occlusion is no detectable patent lumen. Head MRI 08/13/22 06:16 IMPRESSION: 1. No acute infarct. No diffusion-weighted abnormalities. 2. Very mild T2 and FLAIR signal hyperintensities are probably from small vessel ischemic disease. The distribution involving the frontal lobes can also be seen with migraine headaches. 3. Normal sized ventricles. 4. Visualized [place] of [place]i is normal. There are no areas of occlusion or stenosis. Laboratory Results WBC 10.7 10^3/uL (4.0-10.0) H 08/13/22 02:47 RBC 4.19 10^6/uL (4.1-5.3) 08/13/22 02:47 Hgb 11.7 g/dL (11.5-15.3) 08/13/22 02:47 Hct 36.6 % (37.0-47.0) L 08/13/22 02:47 MCV 87.4 fl (81-99) 08/13/22 02:47 MCH 27.9 pg (28.0-34.0) L 08/13/22 02:47 MCHC 32.0 g/dL (30.0-36.0) 08/13/22 02:47 RDW 13.9 % (12.1-15.1) 08/13/22 02:47 Plt Count 322 10^3/cmm (130-400) 08/13/22 02:47 MPV 10.6 fL (7.4-10.4) H 08/13/22 02:47 Neut % (Auto) 51.4 % 08/13/22 02:47 Lymph % (Auto) 38.9 % 08/13/22 02:47 [place] % (Auto) 8.1 % 08/13/22 02:47 Eos % (Auto) 0.7 % 08/13/22 02:47 Baso % (Auto) 0.6 % 08/13/22 02:47 Neut # (Auto) 5.51 10^3/uL (1.8-7.7) 08/13/22 02:47 Lymph # (Auto) 4.2 10^3/uL (0.8-4.8) 08/13/22 02:47 [place] # (Auto) 0.9 10^3/uL (0.2-0.9) 08/13/22 02:47 Eos # (Auto) 0.1 10^3/uL (0.0-0.8) 08/13/22 02:47 Baso # (Auto) 0.1 10^3/uL (0.0-0.1) 08/13/22 02:47 Nucleated RBC % (auto) 0 % 08/13/22 02:47 Nucleated RBCs # 0.0 /100WBC 08/13/22 02:47 ESR 12 mm/hr (0-15) 08/12/22 19:00 PT 12.60 SECONDS (12.1-14.9) 08/12/22 19:01 INR 0.91 (0.8-1.2) 08/12/22 19:01 Sodium 141 mmol/L (136-145) 08/13/22 02:47 Potassium 3.7 mmol/L (3.5-5.1) 08/13/22 02:47 Chloride 107 mmol/L (98-107) 08/13/22 02:47 Carbon Dioxide 22 mmol/L (22-29) 08/13/22 02:47 Anion Gap 15.7 (5-19) 08/13/22 02:47 BUN 12 mg/dL (8-23) 08/13/22 02:47 Creatinine 0.6 mg/dL (0.5-0.9) 08/13/22 02:47 GFR Calculation 101.6 mL/min (90-130) 08/13/22 02:47 Glucose 99 mg/dL (65-115) 08/13/22 02:47 Calculated Osmolality 292 mOsm/kg (285-295) 08/13/22 02:47 Calcium 9.1 mg/dL (8.5-10.5) 08/13/22 02:47 Magnesium 2.3 mg/dL (1.7-2.3) 08/12/22 19:01 Total Bilirubin 0.2 mg/dL (0.15-1.2) 08/13/22 02:47 AST 19 U/L (0-32) 08/13/22 02:47 ALT 9 U/L (0-33) 08/13/22 02:47 Alkaline Phosphatase 79 U/L (35-105) 08/13/22 02:47 Troponin T Baseline 6 ng/L (0-10) 08/12/22 19:01 Troponin T 120 Minute 6.00 ng/L (0-10) 08/12/22 20:35 Delta Troponin T 0 ABS# (0-10) 08/12/22 20:35 Troponin T Hi Sens 6Hr 6.00 ng/L (0-10) 08/13/22 02:47 Troponin T Hi Sens 6Hr Delta 0 ng/L (0-12) 08/13/22 02:47 Total Protein 6.3 g/dL (6.6-8.7) L 08/13/22 02:47 Albumin 3.8 g/dL (3.5-5.2) 08/13/22 02:47 Globulin 2.5 g/dL (1.3-4.6) 08/13/22 02:47 Triglycerides 580 mg/dL (0-150) H 08/12/22 20:35 Cholesterol 268 mg/dL (0-200) H 08/12/22 20:35 LDL Cholesterol Direct 160 mg/dL (0-100) H 08/12/22 20:35 LDL Cholesterol, Calc Not Reportable 08/12/22 20:35 HDL Cholesterol 49 mg/dL (60-100) L 08/12/22 20:35 LDL/HDL Ratio Not Reportable 08/12/22 20:35 Cholesterol/HDL Ratio 5.47 mg/dL (0.0-4.40) H 08/12/22 20:35 TSH 1.49 uIU/mL (0.27-4.20) 08/12/22 19:01 Urine Color Colorless (Yellow) 08/12/22 20:32 Urine Appearance Clear (CLEAR) 08/12/22 20:32 Urine pH 9 (5-7) H 08/12/22 20:32 Ur Specific [place] 1.015 (1.005-1.030) 08/12/22 20:32 Urine Protein Neg (Negative) 08/12/22 20:32 Urine Glucose (UA) Norm (Normal) 08/12/22 20:32 Urine Ketones 1+ (Negative) H 08/12/22 20:32 Urine Blood Neg (Negative) 08/12/22 20:32 Urine Nitrate Negative (Negative) 08/12/22 20:32 Urine Bilirubin Neg (Negative) 08/12/22 20:32 Prot Sulfosalicylic Acd Negative (Negative) 08/12/22 20:32 Urine Urobilinogen Norm mg/dL (Negative) 08/12/22 20:32 Ur Leukocyte Esterase Negative (Negative) 08/12/22 20:32 SARS-CoV-2 Ag (Rapid) negative (Negative) 08/12/22 21:19 Vitals Last Vital Signs Temp 97.9 F 08/13/22 11:49 Pulse 80 08/13/22 11:49 Resp 16 08/13/22 11:49 BP 122/76 08/13/22 11:49 Pulse Ox 97 08/13/22 11:49 O2 Del Method 08/13/22 11:49 Discharge Plan Discharge Patient Disposition: Home Condition: Stable Prescriptions: New aspirin 81 mg Tablet,Delayed Release (Dr/Ec) 81 mg PO DAILY 30 Days Qty: 30 0RF fenofibrate 50 mg capsule 50 mg PO DAILY 30 Days Qty: 30 0RF Continued Zyrtec 10 mg capsule 10 mg PO DAILY fluoxetine 10 mg capsule 10 mg PO DAILY progesterone micronized 200 mg capsule 200 mg PO DAILY Held estradiol 0.05 mg/24 hr patch semiweekly 0.05 mg transdermal Q7D Hold Instructions: Resume on 08/13/22. Other Ambulatory Orders: MCT/Event Monitor 30 Days (Routine) Timeframe: 1 Day Facility: [facility] - Location: Radiology Ordered By: Yonathan Mayer Referrals: Petrona Tai MD [Physician] - 2 weeks (syncope and collapse) Jann Way M.D [Physician] - 1 month Uche Emmanuel DO [Primary Care Provider] - 1-3 days Discharge Diet: Cardiac Discharge Activity: Resume usual activity Patient Instructions: Syncope (DC), Hyperlipidemia (DC), Opioid Safety Activity Restrictions/Additional Instructions: - If you have recurrent syncopal symptoms please go to the emergency room -Please hydrate well -Follow-up with Dr. Tai in 2 weeks -Please modify diet, low-fat diet, DASH diet or Mediterranean diet -Please take fenofibrate for hypertriglyceridemia -Aspirin for stroke prophylaxis -Hold estradiol as its associate with increased hypercoagulability in's -I have ordered a hypercoagulability panel, please follow-up with primary care for results Discharge Attestations Time Spent in Discharge Care*: less than 30 min Quality Metrics Clinical Quality Measures [ No reported AMI, CVA or VTE this stay] Coding Level of Care Code Acute Chg FW DC note Diagnoses TIA (transient ischemic attack) G45.9
[2022-08-14 14:22] LABS: CENTROMERE B ANTIBODY <1.0 NEG AI (<1.0 NEG); JO-1 ANTIBODY <1.0 NEG AI (<1.0 NEG); RNP ANTIBODY <1.0 NEG AI (<1.0 NEG); SCL-70 ANTIBODY <1.0 NEG AI (<1.0 NEG); SJOGREN'S ANTIBODY (SS-A) <1.0 NEG AI (<1.0 NEG); SM ANTIBODY <1.0 NEG AI (<1.0 NEG); SS-B <1.0 NEG AI (<1.0 NEG); THYROID PEROXIDASE ANTIBODIES <1 IU/mL (<9)
[2022-08-14 17:28] LABS: ANA SCREEN, IFA NEGATIVE (NEGATIVE)
[2022-08-16 04:32] LABS: CARDIOLIPIN AB (IGA) <2.0 APL-U/mL; CARDIOLIPIN AB (IGG) <2.0 GPL-U/mL; CARDIOLIPIN AB (IGM) 4.9 MPL-U/mL
[2022-08-17 12:23] LABS: COMPLEMENT, TOTAL (CH50) 58 U/mL (31-60)
[2022-08-17 12:44] LABS: COMPLEMENT COMPONENT C3C 180 mg/dL (83-193); COMPLEMENT COMPONENT C4C 35 mg/dL (15-57)
[2022-08-18 14:19] LABS: DNA AB (DS) CRITHIDIA,IFA NEGATIVE (NEGATIVE)
[2022-08-18 21:53] LABS: Lupus Hexagonal Phas Confirm NEGATIVE (NEGATIVE)
[2022-08-18 21:57] LABS: PTT-LA-Screen 41 sec (< OR = 40)
[2022-08-19 12:56] LABS: PROTHROMBIN (FACTOR II) 20210G NEGATIVE
[2022-08-19 21:07] LABS: Factor 5 Leiden Mutation NEGATIVE
== END 2022-08-13 15:30 | disposition home or self-care (01) ==
LOC: ER 21:53 → MEDSURG 08-13 07:30
PROVIDERS: Admitting Provider Student in an Organized Health Care Education/Training Program; Emergency Provider Emergency Medicine; PCP Internal Medicine; Visit Provider Family Medicine
DX: G45.9 Transient cerebral ischemic attack, unspecified (principal); R55 Syncope and collapse; Z86.16 Personal history of COVID-19
CPT/HCPCS: 36415; 70450; 70496; 70498; 70544; 70553; 71045; 80053; 80061; 81003; 81241; 83721; 83735; 84443; 84484; 85025; 85210; 85610; 85613; 85651; 85730; 86147; 86160; 86162; 86235; 86255; 86376; 87426; 93005; 93306; 96374; 99285; A9577; G0378; J7030; J9352; Q9967

== ENCOUNTER 2022-08-14 17:55 | Emergency (ER) | payer OTHER, SELFPAY ==
[2022-08-14 17:56] VITALS: BP 146/77; PULSE 95; RESP 15; O2SAT 100
--- NOTE | 2022-08-14 18:02 | CTR_ITS ---
PROCEDURE INFORMATION: Exam: CT Head Without Contrast Exam date and time: 08/14/2022 6:28 PM Age: 61 years old Clinical indication: Altered mental status/memory loss; Additional info: AMS TECHNIQUE: Imaging protocol: Computed tomography of the head without contrast. Radiation optimization: All CT scans at this facility use at least one of these dose optimization techniques: automated exposure control; mA and/or kV adjustment per patient size (includes targeted exams where dose is matched to clinical indication); or iterative reconstruction. COMPARISON: MR head wo/w con [id number] 08/13/2022 12:16 PM RADIATION DOSE METRICS: Total DLP (mGy-cm): 1096.69 FINDINGS: Brain: Normal. No hemorrhage. Unremarkable white matter. No mass effect. Cerebral ventricles: No ventriculomegaly. Paranasal sinuses: Visualized sinuses are unremarkable. No fluid levels. Mastoid air cells: Visualized mastoid air cells are well aerated. Bones/joints: Unremarkable. No acute fracture. Soft tissues: Unremarkable. CT/CT head wo con* [id number] IMPRESSION: No acute intracranial abnormality.
[2022-08-14 18:09] LABS: Basophils # 0.1 10^3/uL (0.0-0.1); Basophils % 0.8 %; Eosinophils # 0.1 10^3/uL (0.0-0.8); Eosinophils % 0.7 %; Hematocrit 38.3 % (37.0-47.0); Hemoglobin 12.9 g/dL (11.5-15.3); Lymphocytes # 4.1 10^3/uL (0.8-4.8); Lymphocytes % 39.2 %; Mean Corpuscular HGB Conc 33.7 g/dL (30.0-36.0); Mean Corpuscular Hemoglobin 28.3 pg (28.0-34.0); Mean Platelet Volume 10.8 fL (7.4-10.4); Monocytes # 0.6 10^3/uL (0.2-0.9); Monocytes % 6.1 %; Neutrophils # 5.49 10^3/uL (1.8-7.7); Nucleated Red Blood Cells % 0 %; Platelet Count 395 10^3/cmm (130-400); Red Blood Count 4.56 10^6/uL (4.1-5.3); White Blood Count 10.3 10^3/uL (4.0-10.0)
[2022-08-14 18:15] VITALS: BP 136/71; PULSE 80; RESP 19; O2SAT 100
--- NOTE | 2022-08-14 18:23 | ED_ITS ---
HPI - Altered Mental Status General: Chief Complaint: Altered Mental Status Stated Complaint: AMS Time Seen by Provider: 08/14/22 17:56 Review of Systems Const: Denies: fever(s) or chills Eyes: Denies: change in vision ENMT: Denies: mouth pain Card: Denies: chest pain or palpitations Resp: Denies: dyspnea or non-productive cough GI: Denies: abdominal pain, nausea, vomiting or diarrhea : Denies: dysuria Musc: Denies: extremity pain Skin/Breast: Denies: rash or new lesions Neuro: Denies: weakness in extremities Psych: Reports: other (Normal mood) Alex/Lymph: Denies: easy bruising PFS ED PFSH: Medical History PMS (premenstrual syndrome) Seasonal allergies Surgical History H/O elbow surgery H/O: hysterectomy Family History Other Cancer Social History Smoking and tobacco status: never smoked Alcohol intake: current Alcohol intake frequency: holidays/special occasions only Physical Exam Const: COMMON NORMALS: alert HENMT: COMMON NORMALS: atraumatic HEAD & SCALP: atraumatic MOUTH: moist mucous membranes not abnormal Eye: COMMON NORMALS: EOMs intact bilaterally and conjunctivae normal CONJUNCTIVA: Yes conjunctivae normal Neck/C-Spine: COMMON NORMALS: full ROM and supple Resp: COMMON NORMALS: normal respiratory effort and clear to auscultation bilaterally AUSCULTATION: clear to auscultation bilaterally Cardio: COMMON NORMALS: regular rate RATE: regular rate GI: COMMON NORMALS: Soft to palpation and non-tender PALPATION: Yes Soft to palpation Extremity: COMMON NORMALS: full ROM Neuro: SENSORIUM/ORIENTATION: Yes alert MOTOR EXAM: No Abnormal motor strength present and Other motor observations present (no focal motor deficits) Psych: COMMON NORMALS: speech normal SPEECH: Yes normal speech MOOD & AFFECT: Yes euthymic mood Course Vital Signs: Vital signs: Vital Signs Pulse Rate 80 08/14/22 18:15 Respiratory Rate 19 H 08/14/22 18:15 Blood Pressure 136/71 10/07/22 18:15 Pulse Oximetry 100 08/14/22 18:15 Oxygen Delivery Me thod 08/14/22 17:56 MDM - Altered Mental Status Lab Data : 08/14/22 17:59 08/14/22 17:59 Laboratory Results WBC 10.3 10^3/uL (4.0-10.0) H 08/14/22 17:59 RBC 4.56 10^6/uL (4.1-5.3) 08/14/22 17:59 Hgb 12.9 g/dL (11.5-15.3) 08/14/22 17:59 Hct 38.3 % (37.0-47.0) 08/14/22 17:59 MCV 84.0 fl (81-99) 08/14/22 17:59 MCH 28.3 pg (28.0-34.0) 08/14/22 17:59 MCHC 33.7 g/dL (30.0-36.0) 08/14/22 17:59 RDW 14.0 % (12.1-15.1) 08/14/22 17:59 Plt Count 395 10^3/cmm (130-400) 08/14/22 17:59 MPV 10.8 fL (7.4-10.4) H 08/14/22 17:59 Neut % (Auto) 53.0 % 08/14/22 17:59 Lymph % (Auto) 39.2 % 08/14/22 17:59 [place] % (Auto) 6.1 % 08/14/22 17:59 Eos % (Auto) 0.7 % 08/14/22 17:59 Baso % (Auto) 0.8 % 08/14/22 17:59 Neut # (Auto) 5.49 10^3/uL (1.8-7.7) 08/14/22 17:59 Lymph # (Auto) 4.1 10^3/uL (0.8-4.8) 08/14/22 17:59 [place] # (Auto) 0.6 10^3/uL (0.2-0.9) 08/14/22 17:59 Eos # (Auto) 0.1 10^3/uL (0.0-0.8) 08/14/22 17:59 Baso # (Auto) 0.1 10^3/uL (0.0-0.1) 08/14/22 17:59 Nucleated RBC % (auto) 0 % 08/14/22 17:59 Nucleated RBCs # 0.0 /100WBC 08/14/22 17:59 Discharge Plan Discharge Condition: Stable Prescriptions: No Action Zyrtec 10 mg capsule 10 mg PO DAILY fluoxetine 10 mg capsule 10 mg PO DAILY estradiol 0.05 mg/24 hr patch semiweekly 0.05 mg transdermal Q7D Hold Instructions: Resume on 08/13/22. 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
[2022-08-14 18:29] LABS: Alanine Aminotransferase 11 U/L (0-33); Albumin Level 4.4 g/dL (3.5-5.2); Alkaline Phosphatase 86 U/L (35-105); Blood Urea Nitrogen 11 mg/dL (8-23); Calcium 9.8 mg/dL (8.5-10.5); Carbon Dioxide 21 mmol/L (22-29); Chloride 101 mmol/L (98-107); Globulin 2.9 g/dL (1.3-4.6); Glomerular Filtration Rate 101.6 mL/min (90-130); Glucose 144 mg/dL (65-115); Lipase 43 U/L (13-60); Osmolality Calculated 286 mOsm/kg (285-295); Sodium 137 mmol/L (136-145); Total Bilirubin 0.2 mg/dL (0.15-1.2); Total Protein 7.3 g/dL (6.6-8.7)
--- NOTE | 2022-08-14 18:34 | ED_ITS ---
HPI - General Adult General: Chief complaint: Altered Mental Status Stated complaint: AMS Time Seen by Provider: 08/14/22 17:56 History of Present Illness: Patient is a 61-year-old female with history of recent syncope who presents the emergency room for concerns of feeling lightheaded and sensation of feeling too weak to move. Patient tells me that she had a similar episode on 08/12/2022 at that point time was admitted to hospital for further management. Patient on MRI was found to have no vascular pathology and was negative for any acute stroke. Since her discharge, patient was instructed to follow-up with outpatient with Dr. Tai obtaining EEG. However since 2 days ago patient was doing well up until an hour ago when she suddenly had weakness in the arms bilaterally and feeling lightheadedness. Patient ports that this is sudden onset numbness of her arms. Patient reports moving her legs. Patient has no associated palpitation, chest pain, shortness of breath, abdominal complaints, diarrhea, melena hematochezia, or other focal neurologic complaints at this time Onset:1 hr ago Duration:1 hr Location:home Severity:moderate Associated symptoms: Deny chest pain, dyspnea, nausea, rash, palpitations or vomiting Review of Systems Const: Denies: fever(s) or chills Eyes: Denies: change in vision ENMT: Denies: mouth pain Card: Denies: chest pain or palpitations Resp: Denies: dyspnea or non-productive cough GI: Denies: abdominal pain, nausea, vomiting or diarrhea : Denies: dysuria Musc: Denies: extremity pain Skin/Breast: Denies: rash or new lesions Neuro: Reports: weakness in extremities (+decreased strength of both arms b/l) Psych: Reports: other (Normal mood) Alex/Lymph: Denies: easy bruising PFSH ED PFSH: Medical History PMS (premenstrual syndrome) Seasonal allergies Surgical History H/O elbow surgery H/O: hysterectomy Family History Other Cancer Social History Smoking and tobacco status: never smoked Alcohol intake: current Alcohol intake frequency: holidays/special occasions only Physical Exam Const: COMMON NORMALS: alert HENMT: COMMON NORMALS: atraumatic HEAD & SCALP: atraumatic MOUTH: moist mucous membranes not abnormal Eye: COMMON NORMALS: EOMs intact bilaterally and conjunctivae normal CONJUNCTIVA: Yes conjunctivae normal Neck/C-Spine: COMMON NORMALS: full ROM and supple Resp: COMMON NORMALS: normal respiratory effort and clear to auscultation bilaterally AUSCULTATION: clear to auscultation bilaterally Cardio: COMMON NORMALS: regular rate RATE: regular rate GI: COMMON NORMALS: Soft to palpation and non-tender PALPATION: Yes Soft to palpation Extremity: COMMON NORMALS: full ROM Neuro: SENSORIUM/ORIENTATION: Yes alert MOTOR EXAM: No Abnormal motor strength present and Other motor observations present (no focal motor deficits) Psych: COMMON NORMALS: speech normal SPEECH: Yes normal speech MOOD & AFFECT: Yes euthymic mood Course Vital Signs: Vital signs: Vital Signs Pulse Rate 86 08/14/22 19:03 Respiratory Rate 18 08/14/22 19:03 Blood Pressure 136/71 08/14/22 19:03 Pulse Oximetry 96 08/14/22 19:03 Oxygen Delivery Me thod 08/14/22 17:56 MDM - General Adult Medical Decision Making 61-year-old female with family history of hypercoagulability presenting to the emergency room for evaluation of lightheadedness and bilateral upper extremity weakness. On exam, patient initially has 4 out of 5 strength in both arms bilaterally. Patient reports feeling very lightheaded. However after a period of 2 hours of observation. Patient tells me that she now regain strength she is able to move all her extremities and no longer feels lightheaded. Patient CT scan is negative for any acute finding. Lab work-up is unremarkable. At the present time, it is unclear what is the cause of patient's symptoms. I have instructed patient to follow-up with Dr. Tai for further evaluation as this still could be focal non complex seizure. She is also instructed to follow up with walk-in clinic or PCP for evaluation for autoimmune disorder (patient has fx of lupus) as patient has on CTA mild irregular A1 segment of the right PATI that could indicate possible vacuities. Patient is now neurologically intact and no complaints of lightheadedness, I will discharge patient home today. Patient able ambulate without difficulty. No other focal complaints at this time. I have given patient follow up with our case advocate to be seen by our outpatient by Dr. Ivy for outpatient evaluation. Patient aware of a call from our case advocate to schedule for appointment(s) and verbalizes understanding of the importance of following up. Disposition: Discharge. Patient counseled regarding diagnostic impression, treatment plan. Patient given ED strict return precautions to return for continuation, worsening, or development of new symptoms. Instructed to f/u w/ PCP and Neurology regarding symptoms today. Patient verbalized understanding. Lab Data : 08/14/22 17:59 08/14/22 17:[address] 08/14/22 18:02 IMPRESSION: No acute intracranial abnormality. Laboratory Results WBC 10.3 10^3/uL (4.0-10.0) H 08/14/22 17:59 RBC 4.56 10^6/uL (4.1-5.3) 08/14/22 17:59 Hgb 12.9 g/dL (11.5-15.3) 08/14/22 17:59 Hct 38.3 % (37.0-47.0) 08/14/22 17:59 MCV 84.0 fl (81-99) 08/14/22 17:59 MCH 28.3 pg (28.0-34.0) 08/14/22 17:59 MCHC 33.7 g/dL (30.0-36.0) 08/14/22 17:59 RDW 14.0 % (12.1-15.1) 08/14/22 17:59 Plt Count 395 10^3/cmm (130-400) 08/14/22 17:59 MPV 10.8 fL (7.4-10.4) H 08/14/22 17:59 Neut % (Auto) 53.0 % 08/14/22 17:59 Lymph % (Auto) 39.2 % 08/14/22 17:59 Dunn % (Auto) 6.1 % 08/14/22 17:59 Eos % (Auto) 0.7 % 08/14/22 17:59 Baso % (Auto) 0.8 % 08/14/22 17:59 Neut # (Auto) 5.49 10^3/uL (1.8-7.7) 08/14/22 17:59 Lymph # (Auto) 4.1 10^3/uL (0.8-4.8) 08/14/22 17:59 Dunn # (Auto) 0.6 10^3/uL (0.2-0.9) 08/14/22 17:59 Eos # (Auto) 0.1 10^3/uL (0.0-0.8) 08/14/22 17:59 Baso # (Auto) 0.1 10^3/uL (0.0-0.1) 08/14/22 17:59 Nucleated RBC % (auto) 0 % 08/14/22 17:59 Nucleated RBCs # 0.0 /100WBC 08/14/22 17:59 Sodium 137 mmol/L (136-145) 08/14/22 17:59 Potassium 4.1 mmol/L (3.5-5.1) 08/14/22 17:59 Chloride 101 mmol/L (98-107) 08/14/22 17:59 Carbon Dioxide 21 mmol/L (22-29) L 08/14/22 17:59 Anion Gap 19.1 (5-19) H 08/14/22 17:59 BUN 11 mg/dL (8-23) 08/14/22 17:59 Creatinine 0.6 mg/dL (0.5-0.9) 08/14/22 17:59 GFR Calculation 101.6 mL/min (90-130) 08/14/22 17:59 Glucose 144 mg/dL (65-115) H 08/14/22 17:59 Calculated Osmolality 286 mOsm/kg (285-295) 08/14/22 17:59 Calcium 9.8 mg/dL (8.5-10.5) 08/14/22 17:59 Total Bilirubin 0.2 mg/dL (0.15-1.2) 08/14/22 17:59 AST 22 U/L (0-32) 08/14/22 17:59 ALT 11 U/L (0-33) 08/14/22 17:59 Alkaline Phosphatase 86 U/L (35-105) 08/14/22 17:59 Total Protein 7.3 g/dL (6.6-8.7) 08/14/22 17:59 Albumin 4.4 g/dL (3.5-5.2) 08/14/22 17:59 Globulin 2.9 g/dL (1.3-4.6) 08/14/22 17:59 Lipase 43 U/L (13-60) 08/14/22 17:59 Imaging Data Other Imaging: Radiologist's impression: [facility] [address] [place] [address] CT Scan Report Signed Patient: Soraida Tomas Unit #: [id number] : 1960 Age/Sex: 61 / F ADM Date: 08/14/22 Loc: ER Room/Bed: Attending Dr: Ordering Provider/Ordering MD: Loan Potter MD Date of Service: 08/14/22 Procedure(s): CT head wo con* [id number] Accession Number(s): [id number] Report Number: [id number] PROCEDURE INFORMATION: Exam: CT Head Without Contrast Exam date and time: 08/14/2022 6:28 PM Age: 61 years old Clinical indication: Altered mental status/memory loss; Additional info: AMS TECHNIQUE: Imaging protocol: Computed tomography of the head without contrast. Radiation optimization: All CT scans at this facility use at least one of these dose optimization techniques: automated exposure control; mA and/or kV adjustment per patient size (includes targeted exams where dose is matched to clinical indication); or iterative reconstruction. COMPARISON: MR head wo/w con [id number] 08/13/2022 12:16 PM RADIATION DOSE METRICS: Total DLP (mGy-cm): 1096.69 FINDINGS: Brain: Normal. No hemorrhage. Unremarkable white matter. No mass effect. Cerebral ventricles: No ventriculomegaly. Paranasal sinuses: Visualized sinuses are unremarkable. No fluid levels. Mastoid air cells: Visualized mastoid air cells are well aerated. Bones/joints: Unremarkable. No acute fracture. Soft tissues: Unremarkable. CT/CT head wo con* [id number] IMPRESSION: No acute intracranial abnormality. ? Dictated By: Mauricio Aranda MD Signed By: Mauricio Aranda MD Signed Date/Time: 08/14/221857 DD/ 27 Discharge Plan Discharge Patient Disposition: Home Clinical Impression: Generalized weakness Condition: Stable Prescriptions: No Action Zyrtec 10 mg capsule 10 mg PO DAILY fluoxetine 10 mg capsule 10 mg PO DAILY estradiol 0.05 mg/24 hr patch semiweekly 0.05 mg transdermal Q7D Hold Instructions: Resume on 08/13/22. progesterone micronized 200 mg capsule 200 mg PO DAILY aspirin 81 mg Tablet,Delayed Release (Dr/Ec) 81 mg PO DAILY 30 Days Qty: 30 0RF fenofibrate 50 mg capsule 50 mg PO DAILY 30 Days Qty: 30 0RF Discharge Orders: Discharge ED (Routine); Ordered 08/14/22 Ordered By: Loan Potter Referrals: Uche Emmanuel DO [Primary Care Provider] - Discharge Diet: Advance as tolerated Discharge Activity: Increase activity as tolerated Patient Instructions: Weakness (Generalized) Activity Restrictions/Additional Instructions: Our case advocate will have you follow-up with Dr. Ivy in the next few days. You would be expected to have a phone call with our case advocate who will put you on the schedule. You can expect a call from us. If you don't hear from us, call us back in the emergency room at [phone]. Come back if you have any new or concerning issues. Come back to the emergency room if your episodes are more frequent or if you have any weakness in your arms or legs, if you have any facial droop, double vision, visual blindness, visual field deficits, balance problem, inability to walk, language difficulties or any new or concerning complaints. Here's your MRI result from 08/13. You need an EEG study to rule out seizure. Please follow up to obtain testing for lupus and other autoimmune disease (LESLIE, RF, SLE specific markers). [address] [address] Magnetic Resonance Report Signed Patient: Soraida Tomas Unit #: [id number] : 1960 Age/Sex: 61 / F ADM Date: 08/13/22 Loc: [facility] Room/Bed: 279-[address]: Yonathan Mayer MD Ordering Provider/Ordering MD: Trina Leung MD Date of Service: 08/13/22 Procedure(s): MR head wo/w con [id number] Accession Number(s): [id number] Report Number: [id number] WS: [id number] MRI BRAIN WITH AND WITHOUT CONTRAST HISTORY: TIA, possible vasculitis COMPARISON: Noncontrast CT head 08/12/2022 TECHNIQUE: Multiplanar imaging performed through the brain with MultiHance 15 ml's IV. No acute infarcts are seen. Reddy-white matter differentiation is well preserved. There are a few scattered T2 and FLAIR signal hyperintensities in the frontal and temporal lobes. Small focus of increased signal also adjacent to the LEFT occipital horn of the lateral ventricles and the parietal lobe. No prior infarct or lacunar infarct. No susceptibility artifacts or prior lacunar infarcts. Ventricles and extra-axial spaces are normal. Clivus and pituitary gland are normal. Visualized posterior fossa and brainstem are also normal. Postcontrast images are negative for masses or vascular malformations. Dural venous sinuses are normal. Paranasal sinuses: Well aerated with no significant disease. Mastoid air cells: Normal. Calvarium and scalp: Normal. MR/MR head wo/w con [id number] IMPRESSION: ? 1.? No acute infarct. No diffusion-weighted abnormalities. 2.? Very mild T2 and FLAIR signal hyperintensities are probably from small ve ssel ischemic disease. The distribution involving the frontal lobes can also be seen with migraine headaches. 3.? Normal sized ventricles. 4.? Visualized [place] is normal. There are no areas of occlusion or stenosis. ? ? Dictated By: Madison Lyons DO Signed By: Madison Lyons DO Signed Date/Time: 08/13/22 1332 DD/ 1313 Coding Level of Care Code ED Geophysical Engineer for Chg Fwd Exam Comprehensive
[2022-08-14 18:45] LABS: Anion Gap 19.1 (5-19); Aspartate Amino Transferase 22 U/L (0-32); Potassium 4.1 mmol/L (3.5-5.1)
[2022-08-14 19:03] VITALS: BP 136/71; PULSE 86; RESP 18; O2SAT 96
[2022-08-14 20:43] LABS: Add Urine Microscopic? NO; Charge for UA Resulting for Rev
[2022-08-14 20:56] LABS: Bilirubin Urine Neg (Negative); Blood Urine Neg (Negative); Glucose Urine UA Norm (Normal); Ketones Urine Negative (Negative); Leukocyte Esterase Urine Negative (Negative); Nitrate Urine Negative (Negative); Protein Urine Neg (Negative); Sulfosalicylic Acid Urine Negative (Negative); Urine Appearance Clear (CLEAR); Urine Color Yellow (Yellow); Urobilinogen Urine Neg (Negative); pH Urine 8 (5-7)
== END 2022-08-14 21:20 | disposition home or self-care (01) ==
PROVIDERS: Emergency Provider Emergency Medicine; PCP Internal Medicine
DX: R53.1 Weakness (principal); Z79.82 Long term (current) use of aspirin
CPT/HCPCS: 70450; 80053; 81003; 83690; 85025; 99284

== ENCOUNTER 2022-11-18 13:20 | Outpatient (CLI) | payer OTHER, SELFPAY ==
--- NOTE | 2022-11-18 13:45 | MR_ITS ---
WS: [id number] MRA HEAD TECHNIQUE: Axial 3-D TOF images obtained with axial images and axial, sagittal, and coronal 2-D refor matted images. CLINICAL INFORMATION: G43.711 - Chronic migraine without aura, intractable, wit... COMPARISON: CTA August 12, 2022 FINDINGS: Some images degraded by patient motion. Distal vertebral arteries are patent. Basilar artery is patent. Normal vascularity to the MEDICAL BILLING COORDINATOR territo ry bilaterally. Small RIGHT P1 segment. Near persistent RIGHT MEDICAL BILLING COORDINATOR. Both ICAs are patent at the skull base. Hypoplastic RIGHT A1 segment. Normal vascularity to the PATI a nd MCA territories bilaterally. No evidence of flow-limiting stenosis or aneurysm. Mild irregularity involving the proximal PATI territory involving the A2 segments RIGHT greater than L EFT best seen on the coronal imaging. Findings are nonspecific but can be seen with vasculitis versus atheromatous disease. No other suspicious findings. MR/MR angio head wo con [id number] IMPRESSION: Some images degraded by patient motion. 1. Mild irregularity involving the proximal PATI territory involving the A2 seg ments RIGHT greater than LEFT best seen on the coronal imaging. Findings are no nspecific but can be seen with vasculitis versus atheromatous disease 2. Hypoplastic RIGHT A1 segment. 3. Persistent RIGHT MEDICAL BILLING COORDINATOR with a tiny RIGHT P1 segment. Normal vascularity to the MEDICAL BILLING COORDINATOR territory bilaterally. 4. No other suspicious findings.
== END 2022-11-18 13:21 | disposition home or self-care (01) ==
LOC: RAD 13:24
PROVIDERS: PCP Internal Medicine; Visit Provider Specialist
DX: G43.711 Chronic migraine without aura, intractable, with status migrainosus (principal)
CPT/HCPCS: 70544

== ENCOUNTER 2023-09-22 05:49 | Day surgery (SDC) | payer OTHER, SELFPAY ==
[2023-09-22] VITALS (10 sets, daily range): BP systolic 105–151; BP diastolic 57–92; PULSE 89–115; RESP 16–18; TEMP 36.2–37.1; O2SAT 92–100; BMI 26.2
--- NOTE | 2023-09-22 05:59 | W.PM.OPSFHP ---
Same Day Surgery H&P Indication for Procedure/HPI DATE OF PROCEDURE: September 22, 2023 CHIEF COMPLAINT/INDICATIONFOR SURGICAL PROCEDURE: lower back lipoma PREOP DIAGNOSIS: Lower back Mass PLANNED PROCEDURE: Operation Date: 09/22/23 07:00 [place] 09423 excision mass of lower back,D17.9(Not Applicable) - Yoni Lee MD Medications/Allergies* Home Medications Medication Instructions Recorded Confirmed Type cetirizine 10 mg capsule (Zyrtec) 10 mg PO DAILY 02/17/21 09/21/23 History fluoxetine 10 mg capsule 10 mg PO DAILY 02/17/21 09/21/23 History progesterone micronized 200 mg 200 mg PO DAILY 08/12/22 09/21/23 History capsule levetiracetam 500 mg tablet 500 mg PO BID 07/19/23 09/21/23 History (Keppra) Allergies/Adverse Reactions Allergy/AdvReac Type Severity Reaction Status Date / Time Sulfa (Sulfonamide Allergy Rash Verified 09/21/23 10:04 Antibiotics) Pertinent History/Comorbid Conditions* Medical History (Updated 12/21/22 @ 13:29 by Petrona Tai MD) PMS (premenstrual syndrome) Seasonal allergies Surgical History (Updated 02/18/21 @ 12:10 by Monica Fink DO) H/O elbow surgery H/O: hysterectomy Family History (Updated 02/17/21 @ 14:38 by Elena Gomez LPN) Cancer Social History Smoking and tobacco/nicotine status: never used tobacco/nicotine Alcohol intake: current Alcohol intake frequency: holidays/special occasions only Pertinent Exam Findings alert, oriented x 3, clear to auscultation bilaterally, regular rate & rhythm and operative site marked Recommendations Surgery/Procedure today Coding Level of Care Code Acute Code for Chg Fwd Diagnoses
[2023-09-22] MEDS: sodium chloride 0.9% 1,000 ML 30 ML IV (06:28)
--- NOTE | 2023-09-22 06:41 | ANES.PREANE2 ---
Pre-Anesthetic Assessment Height/Weight: Height 1.6 m Weight 67.132 kg Temp Pulse Resp BP Pulse Ox O2 Del Method 98.8 F 92 18 139/74 96 Room Air 09/22/23 06:04 09/22/23 06:04 09/22/23 06:04 09/22/23 06:04 09/22/23 06:04 09/22/23 06:05 Preop Diagnosis: Lower back Mass Operation Date: 09/22/23 07:00 Proposed Procedures p 70088 excision mass of lower back,D17.9(Not Applicable) - Yoni Lee MD Familial anesthetic complications: None Was Beta Shilpa taken within 24 hours: N/A Was Clonidine taken within 24 hours: N/A Last intake: Intake Last Liquid Date 09/21/23 Last Liquid Time 21:00 Last Solid Date 09/21/23 Last Solid Time 19:30 Social No alcohol and No tobacco Exam alert, oriented x 3, clear to auscultation bilaterally and regular rate & rhythm Airway Mallampati: Class II Dentition: full Neuropsych Seizure Anesthetic Plan ASA status: 3 Anesthesia: Choice Risk of > 500 ml blood loss (7ml/kg in children): No Medications/Allergies Home Medications Medication Instructions Recorded Confirmed Last Taken Type cetirizine 10 mg capsule (Zyrtec) 10 mg PO DAILY 02/17/21 09/21/23 09/21/23 History fluoxetine 10 mg capsule 10 mg PO DAILY 02/17/21 09/21/23 09/21/23 History progesterone micronized 200 mg 200 mg PO DAILY 08/12/22 09/21/23 09/21/23 History capsule levetiracetam 500 mg tablet 500 mg PO BID 07/19/23 09/21/23 09/21/23 History (Keppra) Allergies Allergy/AdvReac Type Severity Reaction Status Date / Time Sulfa (Sulfonamide Allergy Rash Verified 09/21/23 10:04 Antibiotics) Current Medications Generic Name Dose Route Start Last Admin Trade Name Freq PRN Reason Stop Dose Admin Sodium Chloride 1,000 mls @ 30 mls/hr 09/22/23 06:00 09/22/23 06:28 Sodium Chloride 0.9% IV 09/23/23 05:59 30 mls/hr .Q24H YUNG Administration PFSH Anesthesia Medical History PMS (premenstrual syndrome) Seasonal allergies Surgical History (Updated 07/19/23 @ 09:35 by BRIANNE Arevalo) H/O elbow surgery H/O: hysterectomy Family History Other Cancer Social History Smoking and tobacco/nicotine status: never used tobacco/nicotine Alcohol intake: current Alcohol intake frequency: holidays/special occasions only Data Anesthesia Cardiac Studies: Echocardiogram 08/12/22 Cardiac Event Monitor 08/25/22
[2023-09-22] MEDS: ceFAZolin 2,000 MG in sodium chloride 0.9% (plus) 50 ML 100 MG IV (06:59)
[2023-09-22] MEDS: lidocaine-epi 1% 20 mL INJ INJECTION (07:25)
[2023-09-22] MEDS: BUPivacaine 0.25% INJ 30 mL INJECTION (07:25)
--- NOTE | 2023-09-22 07:59 | P.OP_ITS ---
Operative Report Date of procedure: September 22, 2023 Pre-op diagnosis: Back mass Post-op diagnosis: Lipoma of the lower back Procedure done: Excision of lower back mass Specimens removed/disposition: Lipoma Surgeon: Yoni Lee MD English As A Second Language Instructor: IDANIA OR Staff Estimated blood loss: 5cc Complications: none Findings: There was localized mature fat in the lower back, consistent with a lipoma. Brief History: 62-year-old female with a lower back mass who presented for excision. After discussion of all the risk and benefits as documented in my preop note we decided to proceed to the OR. Procedure: Patient was brought into the OR, she was intubated, she was flipped into a prone position taking careful consideration of her ergonomics. The lower back was prepped and draped in the usual sterile fashion. A timeout was conducted. Local anesthesia was injected in the affected area in the midline of the lower back. The area was marked and a 4 cm surgical incision was created with a 15 blade. The surgical incision was deepened to the subcutaneous tissue. I then proceeded to open the superficial fascia with electrocautery, at this point several small accumulations of fat were noted below the level of the fascia, consistent with lipoma. The fat was dissected from the surrounding tissue and completely excised. After the fat was removed, hemostasis was achieved with electrocautery. The wound was irrigated, the wound was then closed in layers using #2-0 Vicryl for the deep tissue and fascia, #3-0 Vicryl the subcutaneous layer and 3-0 vertical mattress nylon sutures for the skin. Sterile dressing was applied taking careful consideration of providing compression over the area to prevent seroma. At the end of the procedure patient was extubated, she tolerated well the procedure and was transferred to the PACU in stable condition. In addition all counts were correct after the procedure was done.
[2023-09-22] MEDS: ondansetron 2 mg/ML SDV 2 mL 4 MG IVP ×2 (08:32→08:45)
[2023-09-22] MEDS: meperidine 50 mg/mL INJ 12.5 MG IVP ×2 (08:59→09:15)
--- NOTE | 2023-09-22 10:30 | ANE.PACU2 ---
Inpatient post-anesthesia follow up: Airway intact: Yes Vital signs: Temperature 97.1 F Pulse Rate 93 Respiratory Rate 16 Blood Pressure 105/57 Pulse Oximetry 94 Oxygen Delivery Me thod Room Air Oxygen Flow Rate 6 Fraction of Inspir ed Oxygen Hydration adequate: Yes Nausea and vomiting: No Pain level: 1 Mental status: Baseline
== END 2023-09-22 10:33 | disposition home or self-care (01) ==
PROVIDERS: PCP Internal Medicine; Visit Provider Surgery
PROC: (CPT 11406; principal; 2023-09-22 07:00)
DX: D17.1 Benign lipomatous neoplasm of skin and subcutaneous tissue of trunk (principal)
CPT/HCPCS: 11406; 12032; 88304; 88305; J0131; J0690; J1100; J1885; J2175; J2405; J2704; J2710; J3010; J3490; J7030

== ENCOUNTER 2025-02-26 13:51 | Emergency (ER) | payer OTHER, SELFPAY ==
[2025-02-26 14:05] VITALS: BP 134/76; PULSE 89; TEMP 36.3; O2SAT 99; BMI 23.0
--- NOTE | 2025-02-26 14:10 | ECG_ITS ---
[employer] Test Date: 2025-02-26 Pat Name: Soraida Tomas Department: Room: Gender: Female Relief Operator: : 1960 Requested By: Mo Srinivasan Order Number: [id number] Kiki MD: Lisbeth Gallegos M.D. Measurements Intervals [place] Rate: 77 P: 61 TX: 156 QRS: 37 QRSD: 102 T: 89 QT: 400 QTc: 455 Interpretive Statements SINUS RHYTHM WITH SINUS ARRHYTHMIA INDETERMINATE AXIS LOW QRS VOLTAGE IN PRECORDIAL LEADS [QRS DEFLECTION < 1.0 mV IN CHEST LEADS] POSSIBLE ANTERIOR MYOCARDIAL INFARCTION , PROBABLY OLD [30 ms Q WAVE IN V3/V4, OR R < 0.2 mV IN V4] INTERPRETATION BASED ON A DEFAULT AGE OF 40 YEARS Compared to ECG 08/13/2022 00:59:26 Low QRS voltage now present Myocardial infarct finding now present Electronically Signed On 02-26-2025 16:36:45 CDT by Lisbeth Gallegos M.D. [email or web address]
--- NOTE | 2025-02-26 14:35 | CTR_ITS ---
PROCEDURE INFORMATION: Exam: CT Head Without Contrast Exam date and time: 02/26/2025 2:57 PM Age: 64 years old Clinical indication: Syncope and collapse; Additional info: Headache, syncope TECHNIQUE: Imaging protocol: Computed tomography of the head without contrast. Radiation optimization: All CT scans at this facility use at least one of these dose optimization techniques: automated exposure control; mA and/or kV adjustment per patient size (includes targeted exams where dose is matched to clinical indication); or iterative reconstruction. COMPARISON: MR angio head wo con [id number] 11/18/2022 1:36 PM RADIATION DOSE METRICS: Total DLP (mGy-cm): 961.61 FINDINGS: Brain: No hemorrhage. No edema. Mild diffuse cerebral atrophy and sequela of chronic small vessel ischemic disease. No mass effect. Cerebral ventricles: No ventriculomegaly. Paranasal sinuses: Visualized sinuses are unremarkable. No fluid levels. Mastoid air cells: Visualized mastoid air cells are well aerated. Bones: Unremarkable. No acute fracture. Soft tissues: Unremarkable. CT/CT head wo con* [id number] IMPRESSION: No acute intracranial abnormality.
--- NOTE | 2025-02-26 14:35 | XR_ITS ---
WS: [id number] Exam: XR chest 1V portable [id number] Date/Time of Exam: 02/26/2025 2:39 PM Reason For Exam: syncope Comparison 08/12/2022. Lungs are fully inflated and clear. Normal cardiomediastinal silhouette and regional bony elements. No pleural effusions. XR/XR chest 1V portable [id number] IMPRESSION: 1. Negative chest.
[2025-02-26 14:36] LABS: Glucose Point of Care 108 mg/dL (70-110)
--- NOTE | 2025-02-26 14:40 | W.ED.SYNCOPE ---
HPI - Syncope General: Chief Complaint: Syncope Stated Complaint: passing out, dizzy, confusion Time Seen by Provider: 02/26/25 14:23 History of Present Illness: 64-year-old female presents due to passing out patient has a history of these kind of episodes and has a neurologist in [place]. Patient reports this 1 seems different because she seems a little bit more confused than normal and has a headache. He did give her 2 [id number] headache medications. She had a headache for the last couple days. Patient does take Keppra twice daily. Patient has some associated dizziness but has some baseline dizziness that is similar. Associated symptoms: Reports headache(s); Deny abdominal pain, chest pain, fever(s) or nausea Related Data Home Medications ?Medication ?Instructions ?Recorded ?Confirmed cetirizine 10 mg capsule (Zyrtec) 10 mg PO DAILY 02/17/21 02/26/25 fluoxetine 10 mg capsule 10 mg PO DAILY 02/17/21 02/26/25 progesterone micronized 100 mg 100 mg PO DAILY 09/24/23 02/26/25 capsule brivaracetam 50 mg tablet 50 mg PO BID 02/26/25 02/26/25 (Briviact) escitalopram oxalate 10 mg tablet 10 mg PO BEDTIME 02/26/25 02/26/25 riboflavin (vitamin B2) 400 mg 400 mg PO DAILY 02/26/25 02/26/25 tablet Previous Rx's ?Medication ?Instructions ?Recorded brivaracetam 50 mg tablet 100 mg (2 x 50 mg) PO BID #14 tabs 02/26/25 (Briviact) Allergies Allergy/AdvReac Type Severity Reaction Status Date / Time Sulfa (Sulfonamide Allergy Rash Verified 02/26/25 14:16 Antibiotics) Review of Systems Const: Denies: fever(s) or chills Card: Denies: chest pain or palpitations Resp: Denies: dyspnea or wheezing GI: Denies: abdominal pain, nausea or vomiting Neuro: Reports: headache(s) and dizziness PFS ED PFSH: Medical History Seasonal allergies PMS (premenstrual syndrome) Surgical History H/O elbow surgery H/O: hysterectomy Family History Other Cancer Social History Smoking and tobacco/nicotine status: never used tobacco/nicotine Alcohol intake: current Alcohol intake frequency: holidays/special occasions only Course Vital Signs: Vital signs: Vital Signs Temperature 97.3 F L 02/26/25 14:05 Pulse Rate 92 02/26/25 17:13 Blood Pressure 125/72 02/26/25 17:13 Pulse Oximetry 97 02/26/25 17:13 Oxygen Delivery Me thod Room Air 02/26/25 14:05 MDM - Syncope Medical Decision Making Patient's diagnostics were reviewed and interpreted by me. Patient has no significant acute findings. I did call and discussed with Dr. Villasenor neurologist at [facility] for patient receives her care. I recommended she increase her Briviact to 100 mg p.o. twice daily and they call the office in the morning to arrange for a outpatient follow-up here in the next day or so. Patient has a history of [place]uras with a seizure. She was provided 500 mg Keppra in the ER. Patient's symptoms were improving upon discharge. Lab Data 02/26/25 14:27 02/26/25 14:27 Radiology Impressions Chest X-Ray 02/26/25 14:35 IMPRESSION: 1. Negative chest. Head CT 02/26/25 14:35 IMPRESSION: No acute intracranial abnormality. Laboratory Results WBC 11.90 10^3/uL (3.29-11.43) H 02/26/25 14:27 RBC 4.76 10^6/uL (3.85-5.65) 02/26/25 14:27 Hgb 13.40 g/dL (11.27-16.99) 02/26/25 14:27 Hct 39.7 % (36-47) 02/26/25 14:27 MCV 83.4 fl (85-98) L 02/26/25 14:27 MCH 28.2 pg (27-33) 02/26/25 14:27 MCHC 33.8 g/dL (30-55) 02/26/25 14:27 RDW 14.9 % (12.1-15.1) 02/26/25 14:27 Plt Count 430 10^3/cmm (157-399) H 02/26/25 14: MPV 9.7 fL (7.4-10.4) 02/26/25 14:27 Neut % (Auto) 38.0 % 02/26/25 14:27 Lymph % (Auto) 52.9 % 02/26/25 14:27 Mercer % (Auto) 7.1 % 02/26/25 14:27 Eos % (Auto) 1.0 % 02/26/25 14:27 Baso % (Auto) 0.8 % 02/26/25 14: Neut # (Auto) 4.53 10^3/uL (1.8-7.7) 02/26/25 14: Lymph # (Auto) 6.3 10^3/uL (0.8-4.8) H 02/26/25 14:27 [place] # (Auto) 0.8 10^3/uL (0.2-0.9) 02/26/25 14: Eos # (Auto) 0.1 10^3/uL (0.0-0.8) 02/26/25 14: Baso # (Auto) 0.1 10^3/uL (0.0-0.1) 02/26/25 14: Nucleated RBC % (auto) 0 % 02/26/25 14: Nucleated RBCs # 0.0 /100WBC 02/26/25 14:27 Specimen Type Arterial 02/26/25 15:28 Sample Site Radial, right 02/26/25 15:28 ABG pH 7.67 (7.35-7.45) H* 02/26/25 15:28 ABG pCO2 15.2 mmHg (35-45) L* 02/26/25 15:28 ABG pO2 124.0 mmHg (80.0-100.0) H 02/26/25 15:28 ABG PO2/FiO2 Ratio 590 02/26/25 15:28 ABG HCO3 17.6 mmol/L (22-26) L 02/26/25 15:28 ABG Base Excess 0.0 mmol/L (-2.0-2.0) 02/26/25 15:28 Nir Test Pos 02/26/25 15:28 Hematocrit 40.7 % (37-47) 02/26/25 15:28 Hgb O2 Saturation 99.0 % (95-100) 02/26/25 15:28 Carboxyhemoglobin 0.7 %THgb (0.4-20.1) 02/26/25 15:28 Methemoglobin 0.4 % (0.4-1.5) 02/26/25 15:28 Total Hemoglobin 13.3 g/dL (12-16) 02/26/25 15:28 O2 Delivery Device Room air 02/26/25 15:28 FiO2 21.0 % 02/26/25 15:28 Product Development Actuary ID Mb 02/26/25 15:28 Sodium 139 mmol/L (136-145) 02/26/25 14:27 Potassium 3.3 mmol/L (3.5-5.1) L 02/26/25 14:27 Chloride 102 mmol/L (98-107) 02/26/25 14:27 Carbon Dioxide 18 mmol/L (22-29) L 02/26/25 14:27 Anion Gap 22.3 (5-19) H 02/26/25 14:27 BUN 12 mg/dL (8-23) 02/26/25 14:27 Creatinine 0.7 mg/dL (0.5-0.9) 02/26/25 14:27 GFR Calculation 84.2 mL/min (90-130) L 02/26/25 14:27 Glucose 99 mg/dL (65-115) 02/26/25 14:27 POC Glucose 108 mg/dL (70-110) 02/26/25 14:33 Calculated Osmolality 288 mOsm/kg (285-295) 02/26/25 14:27 Calcium 10.2 mg/dL (8.5-10.5) 02/26/25 14:27 Magnesium 2.2 mg/dL (1.7-2.3) 02/26/25 14:27 Total Bilirubin 0.4 mg/dL (0.15-1.2) 02/26/25 14:27 AST 30 U/L (0-32) 02/26/25 14:27 ALT 20 U/L (0-33) 02/26/25 14:27 Alkaline Phosphatase 86 U/L (35-105) 02/26/25 14:27 Troponin T Baseline < 6 ng/L (0-10) 02/26/25 14:27 Troponin T 120 Minute 6.00 ng/L (0-10) 02/26/25 16:00 Delta Troponin T 0.63820 ABS# (0-10) 02/26/25 16:00 Total Protein 7.6 g/dL (6.6-8.7) 02/26/25 14: Albumin 4.8 g/dL (3.5-5.2) 02/26/25 14: Globulin 2.8 g/dL (1.3-4.6) 02/26/25 14:27 Urine Color Yellow (Yellow) 02/26/25 16:12 Urine Appearance Clear (CLEAR) 02/26/25 16:12 Urine pH 7.5 (5-7) 02/26/25 16:12 Ur Specific [place] 1.006 (1.005-1.030) 02/26/25 16:12 Urine Protein Negative (Negative) 02/26/25 16:12 Urine Glucose (UA) Negative (Normal) 02/26/25 16:12 Urine Ketones 1+ (Negative) H 02/26/25 16:12 Urine Blood Negative (Negative) 02/26/25 16:12 Urine Nitrate Negative (Negative) 02/26/25 16:12 Urine Bilirubin Negative (Negative) 02/26/25 16:12 Urine Urobilinogen 0.2 mg/dL (Negative) 02/26/25 16:12 Ur Leukocyte Esterase Negative (Negative) 02/26/25 16:12 Urine RBC 0-2 /hpf (0-2) 02/26/25 16:12 Urine WBC 0-5 /hpf (0-5) 02/26/25 16:12 Ur Squamous Epith Cells 0-5 /hpf (0-5) 02/26/25 16:12 Amorphous Sediment Not Reportable 02/26/25 16:12 Urine Bacteria None seen /hpf (NONE) 02/26/25 16:12 Hyaline Casts 0-4 /lpf H 02/26/25 16:12 Urine Opiates Screen Negative ng/mL (Negative) 02/26/25 16:12 Ur Barbiturates Screen Negative ng/mL (Negative) 02/26/25 16:12 Ur Phencyclidine Scrn Negative ng/mL (Negative) 02/26/25 16:12 Ur Amphetamines Screen Negative ng/mL (Negative) 02/26/25 16:12 U Benzodiazepines Scrn Negative ng/mL (Negative) 02/26/25 16:12 Urine Cocaine Screen Negative ng/mL (Negative) 02/26/25 16:12 U Marijuana (THC) Screen Negative ng/mL (Negative) 02/26/25 16:12 Ethyl Alcohol < 10 mg/dL (0-10) 02/26/25 14:27 All radiology interpretation(s) finalized by discharge Discharge Plan Discharge Patient Disposition: Home Clinical Impression: Seizures Condition: Stable Prescriptions: New Briviact 50 mg tablet 100 mg PO BID Qty: 14 0RF No Action Zyrtec 10 mg capsule 10 mg PO DAILY fluoxetine 10 mg capsule 10 mg PO DAILY progesterone micronized 100 mg capsule 100 mg PO DAILY escitalopram oxalate 10 mg tablet 10 mg PO BEDTIME Briviact 50 mg tablet 50 mg PO BID riboflavin (vitamin B2) 400 mg tablet 400 mg PO DAILY Discharge Orders: Discharge ED (Routine); Ordered 02/26/25 Ordered By: Mo Srinivasan Referrals: Lisandro Lund DO [Primary Care Provider] - Discharge Diet: Usual diet Discharge Activity: Resume usual activity Patient Instructions: Opioid Safety, Pain Management, Absence Seizure Activity Restrictions/Additional Instructions: Please call your neurologist office in the morning and tell them you were seen in the ER and that the ER physician discussed it with Dr. Villasenor who would like you to have an appointment as soon as possible. 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
[2025-02-26 14:45] LABS: Basophils # 0.1 10^3/uL (0.0-0.1); Basophils % 0.8 %; Eosinophils # 0.1 10^3/uL (0.0-0.8); Hematocrit 39.7 % (36-47); Lymphocytes # 6.3 10^3/uL (0.8-4.8); Lymphocytes % 52.9 %; Mean Corpuscular HGB Conc 33.8 g/dL (30-55); Mean Corpuscular Hemoglobin 28.2 pg (27-33); Mean Corpuscular Volume 83.4 fl (85-98); Mean Platelet Volume 9.7 fL (7.4-10.4); Monocytes # 0.8 10^3/uL (0.2-0.9); Monocytes % 7.1 %; Neutrophils # 4.53 10^3/uL (1.8-7.7); Nucleated Red Blood Cells % 0 %; Platelet Count 430 10^3/cmm (157-399); Red Blood Count 4.76 10^6/uL (3.85-5.65); Red Cell Distribution Width 14.9 % (12.1-15.1)
[2025-02-26 14:57] LABS: Alanine Aminotransferase 20 U/L (0-33); Albumin Level 4.8 g/dL (3.5-5.2); Alkaline Phosphatase 86 U/L (35-105); Anion Gap 22.3 (5-19); Aspartate Amino Transferase 30 U/L (0-32); Blood Urea Nitrogen 12 mg/dL (8-23); Calcium 10.2 mg/dL (8.5-10.5); Carbon Dioxide 18 mmol/L (22-29); Chloride 102 mmol/L (98-107); Creatinine Clr Calc Pharmacy 70.5304; Globulin 2.8 g/dL (1.3-4.6); Glomerular Filtration Rate 84.2 mL/min (90-130); Glucose 99 mg/dL (65-115); Magnesium 2.2 mg/dL (1.7-2.3); Osmolality Calculated 288 mOsm/kg (285-295); Potassium 3.3 mmol/L (3.5-5.1); Sodium 139 mmol/L (136-145); Total Bilirubin 0.4 mg/dL (0.15-1.2); Total Protein 7.6 g/dL (6.6-8.7); Troponin(5th) Baseline < 6 ng/L (0-10)
[2025-02-26 15:03] LABS: Alcohol Level < 10 mg/dL (0-10)
[2025-02-26 15:11] LABS: Slide Review Slide Review Perform
[2025-02-26 15:40] LABS: Arterial Blood Gas Hematocrit 40.7 % (37-47); Blood Gas Allen Test Pos; Blood Gas Operator Identificat MB; Blood Gas Sample Site Radial, right; Blood Gas Sample Type Arterial; Carboxyhemoglobin 0.7 %THgb (0.4-20.1); HCO3 ABG 17.6 mmol/L (22-26); Methemoglobin 0.4 % (0.4-1.5); Oxygen Device ROOM AIR; PO2 FiO2 Ratio Arterial Blood 590; Total Hemoglobin 13.3 g/dL (12-16)
[2025-02-26 15:42] LABS: ABG PCO2 15.2 mmHg (35-45); ABG PH Result 7.67 (7.35-7.45)
[2025-02-26] MEDS: levETIRAcetam 500 MG/100 ML PREMIX 400 MG IV (16:26)
[2025-02-26 16:28] LABS: Troponin 5 2HR Delta 0.00001 ABS# (0-10)
[2025-02-26 16:29] LABS: Bilirubin Urine Negative (Negative); Blood Urine Negative (Negative); Glucose Urine UA Negative (Normal); Ketones Urine 1+ (Negative); Leukocyte Esterase Urine Negative (Negative); Nitrate Urine Negative (Negative); Protein Urine Negative (Negative); Specific Gravity, Urine 1.006 (1.005-1.030); Urine Appearance Clear (CLEAR); Urine Color Yellow (Yellow); Urobilinogen Urine 0.2 mg/dL (Negative); pH Urine 7.5 (5-7)
[2025-02-26 16:34] LABS: Add Urine Microscopic? YES; Bacteria Urine None Seen /hpf; Hyaline Casts Urine 0-4 /lpf; RBC Urine 0-2 /hpf (0-2); Squamous Epithelial Cell Urine 0-5 /hpf (0-5); WBC Urine 0-5 /hpf (0-5)
[2025-02-26 16:36] LABS: Amphetamines Screen Urine Negative (Negative); Barbiturates Screen Urine Negative (Negative); Benzodiazepines Screen Urine Negative (Negative); Cocaine Screen Urine Negative (Negative); Opiate Screen Urine Negative (Negative); PCP Screen Urine Negative (Negative); THC Screen Urine Negative (Negative)
[2025-02-26 16:51] LABS: Add Urine Culture? No
--- NOTE | 2025-02-26 17:00 | PC.NURSE ---
MD denied need for 2 hour EKG.
[2025-02-26 17:13] VITALS: BP 125/72; PULSE 92; O2SAT 97
== END 2025-02-26 17:15 | disposition home or self-care (01) ==
PROVIDERS: Emergency Provider Student in an Organized Health Care Education/Training Program; PCP Electrodiagnostic Medicine
DX: R56.9 Unspecified convulsions (principal)
CPT/HCPCS: 36415; 36416; 36600; 70450; 71045; 80053; 80306; 80307; 81001; 82805; 82962; 83735; 84484; 85025; 93005; 96365; 99285; J1953

== ENCOUNTER → 2025-10-23 08:07 | Outpatient (BNVA) | payer MEDICARE, OTHER, SELFPAY | PROVIDERS: PCP Electrodiagnostic Medicine; Visit Provider Student in an Organized Health Care Education/Training Program | DX: M67.431 Ganglion, right wrist (principal); M19.041 Primary osteoarthritis, right hand | CPT/HCPCS: 73130; 99203 ==